=== PATIENT | male | born 1955 ===

== ENCOUNTER 2018-05-15 07:40 | Day surgery (SDC) | payer OTHER ==
[2018-05-15 08:11] VITALS: BMI 29.5
[2018-05-15] MEDS ORDERED: Propofol 10 mg/ml Inj (20 ML) ONE (09:27)
[2018-05-15] MEDS ORDERED: Midazolam 2 MG/2 ML VIAL ONE (09:27)
[2018-05-15] MEDS ORDERED: Lactated Ringer's 1,000 ML IV ONE ×2 (09:35)
[2018-05-15 10:35] VITALS: TEMP 98.5
[2018-05-15 10:42] VITALS: RESP 19
[2018-05-15 11:24] VITALS: BP 122/71; PULSE 70; O2SAT 98
== END 2018-05-15 11:21 | disposition home or self-care (01) ==
LOC: C.ENDO 07:40
PROVIDERS: ATTEND Internal Medicine Gastroenterology
DX: Z12.11 Encounter for screening for malignant neoplasm of colon (principal); R63.4 Abnormal weight loss; D12.5 Benign neoplasm of sigmoid colon; D12.3 Benign neoplasm of transverse colon; D50.8 Other iron deficiency anemias; K29.70 Gastritis, unspecified, without bleeding; K25.9 Gastric ulcer, unspecified as acute or chronic, without hemorrhage or perforation
CPT/HCPCS: 43239; 45380; 88305; J2001; J2250; J2704; J7120

== ENCOUNTER 2018-06-03 10:59 | Inpatient (IN) | payer OTHER ==
[2018-06-03 10:59] VITALS: BMI 29.5
[~2018-06-03 10:59] MED LIST: Gadodiamide 287 MG/ML VIAL (15ML) IV ONE
[2018-06-03 12:04] LABS: BASO # 0.1 K/uL (0.0-0.2); BASO % 0.8 % (0.0-2.0); EOS # 0.1 K/uL (0.0-0.7); EOS % 1.3 % (0.0-4.0); HEMOGLOBIN 11.5 g/dL (12.0-18.0); LYMPH # 1.8 K/uL (1.0-4.3); LYMPH % 24.9 % (20.0-40.0); MEAN CELL VOLUME 78.2 fL (80.0-94.0); MEAN CORPUSCULAR HEMOGLOBIN 25.8 pg (27.0-31.0); MEAN PLATELET VOLUME 8.5 fL (7.2-11.7); MONO # 0.7 K/uL (0.0-0.8); MONO % 9.7 % (0.0-10.0); NEUT # 4.6 K/uL (1.8-7.0); NEUT % 63.3 % (50.0-75.0); RBC 4.45 Mil/uL (4.40-5.90); RED CELL DISTRIBUTION WIDTH 16.1 % (11.5-14.5); WHITE BLOOD COUNT 7.2 K/uL (4.8-10.8)
[2018-06-03 12:16] LABS: ALBUMIN 3.6 g/dL (3.5-5.0); ALT/SGPT 18 U/L (21-72); AST/SGOT 23 U/L (17-59); BLOOD UREA NITROGEN 19 mg/dL (9-20); CALCIUM 10.1 mg/dl (8.6-10.4); GFR NON-AFRICAN AMERICAN > 60
--- NOTE | 2018-06-03 12:17 | C.PDOC ---
History Of Present Illness Patient sent to the ED by PMD Dr. High for altered mental status, apparently had (+) outpatient RPR. As per family, patient had near syncopal episode several weeks ago, and they urged him to start going to the doctor. Patient had en doscopy done 05/15/18 and was started on PPI and Clarithromycin + Amoxicllin for H. pylori. Family states that soon after they began to notice changes in his mental status, however in the past 1 week it was worsened. Patient is lethargic, does not recognize family. They deny facial droop, slurred speech, extremity weakness, gait changes, drooling. Time Seen by Provider: 06/03/18 11:09 Chief Complaint (Nursing): Weakness/Neurological Deficit History Per: Family History/Exam Limitations: clinical condition Onset/Duration Of Symptoms: Days (2 weeks) Current Symptoms Are (Timing): Still Present Past Medical History Reviewed: Historical Data, Nursing Documentation, Vital Signs Vital Signs: Last Vital Signs Temp 98.1 F 06/03/18 11:08 Pulse 79 06/03/18 12:13 Resp 15 06/03/18 12:13 BP 134/69 06/03/18 12:13 Pulse Ox 98 06/03/18 12:13 - Medical History PMH: Anemia (IRON DEF) Surgical History: Appendectomy (when he was a boy) Family History: States: No Known Family Hx - Social History Hx Alcohol Use: No Hx Substance Use: No - Immunization History Hx Tetanus Toxoid Vaccination: No Hx Influenza Vaccination: No Hx Pneumococcal Vaccination: No Review Of Systems Review Of Systems: ROS cannot be obtained secondary to pt's inabilty to answer questions. Physical Exam - Physical Exam Appears: Non-toxic, Confused Skin: Normal Color, Warm, Dry Head: Atraumatic, Normacephalic Eye(s): bilateral: Normal Inspection, PERRL (no nystagmus ), EOMI Oral Mucosa: Moist Cardiovascular: Rhythm Regular Respiratory: Normal Breath Sounds, No Rales, No Rhonchi, No Wheezing Gastrointestinal/Abdominal: Normal Exam, Bowel Sounds, Soft, No Tenderness Neurological/Psych: No Normal Cognition, Other (awake but disoriented to person/place/time, able to follow basic commands, moving all 4 extremities spontaneously) ED Course And Treatment - Laboratory Results Result Diagrams: 06/06/18 07:25 06/06/18 07:20 ECG: Interpreted By Me, Viewed By Me (sinus rhythm 73 bpm, short MS interval, normal axis, no acute ST/T wave changes) O2 Sat by Pulse Oximetry: 98 (RA) Pulse Ox Interpretation: Normal - Other Rad CXR X-Ray: Viewed By Me, Read By Radiologist Interpretation: Accession No. : [id number]. Patient Name / ID : ALIA MARTINEZ / [id number]. Exam Date : 06/03/2018 11:57:37 ( Approved ). Study Comment : Sex / Age : M / 62Y. Creator : Yannick Kinsey. Dictator : Duyen Hernadez MD. Catering Service Manager : Account Receivable Associate : Duyen Hernadez MD. Approver2 : Report Date : 06/03/2018 12:25:08. My Comment : . HISTORY: ams. COMPARISON: None available. TECHNIQUE: Chest, one view. FINDINGS: LUNGS: Dense left upper lobe masslike consolidation. PLEURA: No significant pleural effusion identified. No definite pneumothorax . CARDIOVASCULAR: Borderline cardiomega ly. No significant atherosclerotic calcification present. OSSEOUS STRUCTURES: Degenerative changes. VISUALIZED UPPER ABDOMEN: Unremarkable. OTHER FINDINGS: None. IMPRESSION: Dense left upper lobe masslike consolidation. Correlate clinically for possibility of pneumonia. Recommend follow-up to ensure complete resolution. Alternatives including malignant neoplasm not excluded. - CT Scan/US ct head Other Rad Studies (CT/US): Read By Radiologist, Radiology Report Reviewed CT/US Interpretation: Accession No. : [id number]. Patient Name / ID : ALIA MARTINEZ / [id number]. Exam Date : 06/03/2018 12:00:35 ( Approved ). Study Comment : Sex / Age : M / 62Y. Creator : Monica Cordova. Dictator : Cramen Singh MD. Catering Service Manager : Account Receivable Associate : Carmen Singh MD. Approver2 : Report Date : 06/03/2018 12:05:33. My Comment : . Date of service: 06/03/2018. PROCEDURE: CT HEAD WITHOUT CONTRAST. HISTORY: ams. COMPARISON: None available. TECHNIQUE: Axial computed tomography images were obtained through the head/brain without intravenous contrast. Radiation dose: Total exam DLP = 1110.82 mGy-cm. This CT exam was performed using one or more of the following dose reduction techniques: Automated exposure control, adjustment of the mA and/or kV according to patient size, and/or use of iterative reconstruction technique. FINDINGS: HEMORRHAGE: No intracranial hemorrhage. BRAIN: There is a 1.9 x 1.9 x 2.1 cm well-circumscribed round hyperdense lesion in the left parietal lobe with significant surrounding vasogenic edema which extends into the frontal, parietal and temporal lobes as well as right basal ganglia, internal capsule and thalamus., local and regional mass effect with effacement of the cortical sulci, left lateral ventricle and 6 mm midline shift from left to right. VENTRICLES: No obstructive hydrocephalus. CALVARIUM: There is no calvarial fracture or extracranial soft tissue swelling. PARANASAL SINUSES: Predominantly clear. MASTOID AIR CELLS: Predominantly clear. OTHER FINDINGS: None. IMPRESSION: 1.9 x 1.9 x 2.1 cm hypodense mass in the left parietal lobe with significant surrounding vasogenic edema, local and regional mass effect with effacement of the left lateral ventricle and 6 mm midline shift from left to right. The differential considerations include metastasis, lymphoma and atypical meningioma. MRI of the brain without and with intravenous contrast is recommended for further characterization. Critical findings were discussed with Dr. Mindy Taylor in the ER on 06/03/2018 at. 12:15 p.m. Progress Note: Blood work, EKG, CXR, CT head ordered. 12:45pm- Spoke with Dr. Lambert, recommends MRI. He is aware MRI is currently down, unclear when will be back up. Discussed patient with neurologist Dr. Perez, is in agreement with current treatment (mannitol, steroids) and recommends MRI. Will see patient in ED. 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 MRI is back up, patient will be going to have test done soon. Critical Care Time - Critical Care Note Total Time (in mins): 50 Documented critical care: time excludes all time spent performing seperately billable procedures. rTPA Inclusion/Exclusion - Refusal of Treatment Patient Refused Treatment: No - Inclusion Criteria for Altepase Patient is 18 years or Older: Yes The Clinical Diagnosis of Ischemic Stroke That is Causing a Potentially Disabling Neurological Deficit: No Time of Onset is Well Established to be Less Than 270 Minute Before Treatment Would Begin: No Risk/Benefit Discussed With Patient/Family Member Present: No Medical Decision Making Medical Decision Making: [place] Coma Scale/Score (GCS) from [facility] on 06/03/2018 All calculations should be rechecked by clinician prior to use RESULT SUMMARY: 13 points [id number] INPUTS: Best eye response > 3 = To verbal command (+3) Best verbal response > 4 = Confused (+4) Best motor response > 6 = Obeys commands (+6) Disposition - Disposition Disposition: HOSPITALIZED Disposition Time: 13:49 Condition: SERIOUS - Clinical Impression Clinical Impression: Brain mass, Mass of left lung, Altered mental status Decision To Admit - Pt Status Changed To: Hospital Disposition Of: Inpatient - Admit Certification Admit to Inpatient:: After my assessment, the patient will require hospitalization for at least two midnights. This is because of the severity of symptoms shown, intensity of services needed, and/or the medical risk in this patient being treated as an outpatient. - InPatient: Physician Admission Certification: I certify that this patient requires 2 or more midnights of care for the following reason:: see notes - . Bed Request Type: Telemetry Admitting Physician: Rayna Botello Patient Diagnosis: Brain mass, Altered mental status, Mass of left lung
--- NOTE | 2018-06-03 12:23 | CT ---
Date of service: 06/03/2018 PROCEDURE: CT HEAD WITHOUT CONTRAST. HISTORY: ams COMPARISON: None available. TECHNIQUE: Axial computed tomography images were obtained through the head/brain without intravenous contrast. Radiation dose: Total exam DLP = 1110.82 mGy-cm. This CT exam was performed using one or more of the following dose reduction techniques: Automated exposure control, adjustment of the mA and/or kV according to patient size, and/or use of iterative reconstruction technique. FINDINGS: HEMORRHAGE: No intracranial hemorrhage. BRAIN: There is a 1.9 x 1.9 x 2.1 cm well-circumscribed round hyperdense lesion in the left parietal lobe with significant surrounding vasogenic edema which extends into the frontal, parietal and temporal lobes as well as right basal ganglia, internal capsule and thalamus., local and regional mass effect with effacement of the cortical sulci, left lateral ventricle and 6 mm midline shift from left to right. VENTRICLES: No obstructive hydrocephalus CALVARIUM: There is no calvarial fracture or extracranial soft tissue swelling. PARANASAL SINUSES: Predominantly clear. MASTOID AIR CELLS: Predominantly clear. OTHER FINDINGS: None. IMPRESSION: 1.9 x 1.9 x 2.1 cm hypodense mass in the left parietal lobe with significant surrounding vasogenic edema, local and regional mass effect with effacement of the left lateral ventricle and 6 mm midline shift from left to right. The differential considerations include metastasis, lymphoma and atypical meningioma. MRI of the brain without and with intravenous contrast is recommended for further characterization. Critical findings were discussed with Dr. Mindy Taylor in the ER on 06/03/2018 at 12:15 p.m.
[2018-06-03 12:26] LABS: CK-MB 0.79 ng/mL (0.0-3.38)
[2018-06-03] MEDS ORDERED: Albuterol 0.083% Inhal Sol (2.5 mg/3 mL) UD ONE (12:32)
--- NOTE | 2018-06-03 13:10 | RAD ---
HISTORY: ams COMPARISON: None available. TECHNIQUE: Chest, one view. FINDINGS: LUNGS: Dense left upper lobe masslike consolidation. PLEURA: No significant pleural effusion identified. No definite pneumothorax . CARDIOVASCULAR: Borderline cardiomegaly. No significant atherosclerotic calcification present. OSSEOUS STRUCTURES: Degenerative changes. VISUALIZED UPPER ABDOMEN: Unremarkable. OTHER FINDINGS: None. IMPRESSION: Dense left upper lobe masslike consolidation. Correlate clinically for possibility of pneumonia. Recommend follow-up to ensure complete resolution. Alternatives including malignant neoplasm not excluded.
[2018-06-03 13:24] LABS: VENOUS BLOOD GAS BASE EXCESS 3.7 mmol/L (0.0-2.0); VENOUS BLOOD GAS PCO2 49 mmHg (40-60); VENOUS BLOOD GAS PO2 41 mm/Hg (30-55); VENOUS BLOOD PH 7.39 (7.32-7.43)
[2018-06-03] MEDS ORDERED: levETIRAcetam 500 MG in Sodium Chloride 0.9% 100 ML IVPB STA (13:53)
[2018-06-03 14:34] LABS: INR 1.4; PROTHROMBIN TIME 15.1 SECONDS (9.7-12.2)
[2018-06-03 14:55] LABS: URINE BILIRUBIN NEGATIVE (NEGATIVE); URINE BLOOD NEGATIVE (NEGATIVE); URINE CLARITY Clear (Clear); URINE COLOR Straw (YELLOW); URINE GLUCOSE (UA) NORMAL (Normal); URINE LEUKOCYTE ESTERASE NEG Leu/uL (Negative); URINE PROTEIN NEGATIVE (NEGATIVE); URINE UROBILINOGEN NORMAL mg/dL (0.2-1.0)
--- NOTE | 2018-06-03 15:01 | CP.PCM.HP ---
<Jayde Machado - Last Filed: 06/03/18 16:30> History of Present Illness - History of Present Illness History of Present Illness: CC: Altered mental status HPI (Obtained from Son and at bedside): Patient is a 62 year old male with no known medical history, who presents to the ED with his son and as per PMD, Dr. High due to AMS and positive RPR. As per family member at bedside, they have noticed progressive AMS and confusion for the past 1-2 weeks. Apparently, at the end of April or beginning of May, patient had a fall after he lost his balance as he was attempting to standing up from a sitting position; patient had at least 2-3 attempts to stand up from the chair, which is a significant change from patient's baseline. There was no LOC after the fall or any injury. In addition, patient had an endoscopy and colonoscopy on 05/15/18 and was found to have H. Pylori, which he started triple therapy for (PPI and Clarithromycin + Amoxicllin). As per family, AMS was observed two days after the initiated of the triple therapy with worsening of mental status in the past 1 week. As per son, he reports that he read that Lansoprazole can cause AMS, therefore, last week ; both lansoprazole and Clarithromycin was discontinued. In terms of AMS, patient has been observed to be sluggish at work and at home and unable to answer questions correctly, incomprehensible speech and confusion. Family member denies any aggressive behaviors facial asymmetry, urinary or bowel incontinence, falls, stumbling gait or any complaints from patient about his health. However, they have noted weight loss, decrease appetite and worsening AMS. Unable to access ROS due to patient's current condition. Although, patient's medical history is not known, as per and son, patient does have a history of undiagnosed headache that occurs every other week, which is usually alleviated with Tylenol and without any associated symptoms. Advanced directives: None POA: Son, Mr. Garnett, PMD: Dr. High ( started seeing Dr. 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 Pylori since 05/20/18 or 05/22/18 Allergies: Denies Social Hx: Lives with and son. 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 Tobacco use since the 80s; approximately 1/2PPD, ETOH use socially and denies illicit drugs Present on Admission - Present on Admission Any Indicators Present on Admission: No Review of Systems - Review of Systems Systems not reviewed;Unavailable: Altered Mental Status Review of Systems: Unable to access due to patient's current condition Past Patient History - Past Medical History & Family History Past Medical History?: Yes - Past Social History Smoking Status: Current Some Days Smoker - CARDIAC Hx Cardiac Disorders: No - PULMONARY Hx Respiratory Disorders: No - NEUROLOGICAL Hx Neurological Disorder: No - HEENT Hx HEENT Problems: No - RENAL Hx Chronic Kidney Disease: No - ENDOCRINE/METABOLIC Hx Endocrine Disorders: No - HEMATOLOGICAL/ONCOLOGICAL Hx Anemia: Yes (IRON DEF) - INTEGUMENTARY Hx Dermatological Problems: No - MUSCULOSKELETAL/RHEUMATOLOGICAL Hx Musculoskeletal Disorders: Yes (VIT D DEF) - GASTROINTESTINAL Hx Gastrointestinal Disorders: No Other/Comment: H. pylori - GENITOURINARY/GYNECOLOGICAL Hx Genitourinary Disorders: No Other/Comment: +RPR - PSYCHIATRIC Hx Substance Use: No - SURGICAL HISTORY Hx Appendectomy: Yes (when he was a boy) - ANESTHESIA Hx Anesthesia: Yes Hx Anesthesia Reactions: No Hx Malignant Hyperthermia: No Meds Allergies/Adverse Reactions: Allergies Allergy/AdvReac Type Severity Reaction Status Date / Time No Known Allergies Allergy Verified 05/14/18 14:15 Physical Exam - Constitutional Appears: Non-toxic, No Acute Distress, Confused - Head Exam Head Exam: ATRAUMATIC, NORMAL INSPECTION - Eye Exam Eye Exam: EOMI, Normal appearance, PERRL. absent: Nystagmus, Scleral icterus Pupil Exam: NORMAL ACCOMODATION - ENT Exam ENT Exam: Mucous Membranes Dry - Neck Exam Neck exam: Negative for: Lymphadenopathy - Respiratory Exam Respiratory Exam: Clear to Auscultation Bilateral, NORMAL BREATHING PATTERN. absent: Accessory Muscle Use, Decreased Breath Sounds, Rales, Rhonchi, Wheezes, Respiratory Distress - Cardiovascular Exam Cardiovascular Exam: REGULAR RHYTHM, +S1, +S2. absent: Bradycardia, Tachycardia, Irregular Rhythm, Systolic Murmur - GI/Abdominal Exam GI & Abdominal Exam: Normal Bowel Sounds, Soft. absent: Distended, Firm, Guarding, Mass, Organomegaly, Tenderness - Extremities Exam Extremities exam: Positive for: normal capillary refill, normal inspection, pedal pulses present. Negative for: calf tenderness, pedal edema - Back Exam Back exam: NORMAL INSPECTION. absent: CVA tenderness (L), CVA tenderness (R), rash noted - Neurological Exam Neurological exam: Alert Additional comments: Babinski sign negative NIH: 4 GCS: 14 Weakness to hand squeeze on the right side Unable to completely protrude tongue but able to move his tongue side to side - Psychiatric Exam Psychiatric exam: Flat Affect - Skin Skin Exam: Dry, Normal Color Results - Vital Signs Recent Vital Signs: Last Vital Signs Temp 98.8 F 06/03/18 14:25 Pulse 67 06/03/18 14:25 Resp 20 06/03/18 14:25 BP 133/71 06/03/18 14:25 Pulse Ox 97 06/03/18 14:25 - Labs Result Diagrams: 06/03/18 11:57 06/03/18 11:57 Labs: Laboratory Results - last 24 hr 06/03/18 06/03/18 06/03/18 11:08 11:38 11:57 WBC 7.2 RBC 4.45 Hgb 11.5 L Hct 34.8 L MCV 78.2 L MCH 25.8 L MCHC 33.0 RDW 16.1 H Plt Count 342 MPV 8.5 Neut % (Auto) 63.3 Lymph % (Auto) 24.9 [place] % (Auto) 9.7 Eos % (Auto) 1.3 Baso % (Auto) 0.8 Neut # (Auto) 4.6 Lymph # (Auto) 1.8 [place] # (Auto) 0.7 Eos # (Auto) 0.1 Baso # (Auto) 0.1 PT INR pO2 41 VBG pH 7.39 VBG pCO2 49 VBG HCO3 27.2 VBG Total CO2 31.2 H VBG O2 Sat (Calc) 79.9 H VBG Base Excess 3.7 H VBG Potassium 4.0 Sodium 138.0 Chloride 105.0 Glucose 89 Lactate 0.8 Potassium Carbon Dioxide Anion Gap BUN Creatinine Est GFR ( Amer) Est GFR (Non-Af Amer) POC Glucose (mg/dL) 120 H Random Glucose Calcium Total Bilirubin AST ALT Alkaline Phosphatase Ammonia Total Creatine Kinase CK-MB (Mass) Troponin I Total Protein Albumin Globulin Albumin/Globulin Ratio Venous Blood Potassium 4.0 Urine Color Urine Clarity Urine pH Ur Specific [place] Urine Protein Urine Glucose (UA) Urine Ketones Urine Blood Urine Nitrate Urine Bilirubin Urine Urobilinogen Ur Leukocyte Esterase Urine WBC (Auto) Urine RBC (Auto) 06/03/18 06/03/18 06/03/18 11:57 11:57 14:14 WBC RBC Hgb Hct MCV MCH MCHC RDW Plt Count MPV Neut % (Auto) Lymph % (Auto) [place] % (Auto) Eos % (Auto) Baso % (Auto) Neut # (Auto) Lymph # (Auto) [place] # (Auto) Eos # (Auto) Baso # (Auto) PT 15.1 H INR 1.4 pO2 VBG pH VBG pCO2 VBG HCO3 VBG Total CO2 VBG O2 Sat (Calc) VBG Base Excess VBG Potassium Sodium 138 Chloride 104 Glucose Lactate Potassium 4.6 Carbon Dioxide 29 Anion Gap 10 BUN 19 Creatinine 0.6 L Est GFR ( Amer) > 60 Est GFR (Non-Af Amer) > 60 POC Glucose (mg/dL) Random Glucose 100 Calcium 10.1 Total Bilirubin 0.3 AST 23 ALT 18 L Alkaline Phosphatase 108 Ammonia 34 H Total Creatine Kinase 45 L CK-MB (Mass) 0.79 Troponin I < 0.0120 Total Protein 7.2 Albumin 3.6 Globulin 3.6 Albumin/Globulin Ratio 1.0 Venous Blood Potassium Urine Color Urine Clarity Urine pH Ur Specific [place] Urine Protein Urine Glucose (UA) Urine Ketones Urine Blood Urine Nitrate Urine Bilirubin Urine Urobilinogen Ur Leukocyte Esterase Urine WBC (Auto) Urine RBC (Auto) 06/03/18 14:46 WBC RBC Hgb Hct MCV MCH MCHC RDW Plt Count MPV Neut % (Auto) Lymph % (Auto) [place] % (Auto) Eos % (Auto) Baso % (Auto) Neut # (Auto) Lymph # (Auto) [place] # (Auto) Eos # (Auto) Baso # (Auto) PT INR pO2 VBG pH VBG pCO2 VBG HCO3 VBG Total CO2 VBG O2 Sat (Calc) VBG Base Excess VBG Potassium Sodium Chloride Glucose Lactate Potassium Carbon Dioxide Anion Gap BUN Creatinine Est GFR ( Amer) Est GFR (Non-Af Amer) POC Glucose (mg/dL) Random Glucose Calcium Total Bilirubin AST ALT Alkaline Phosphatase Ammonia Total Creatine Kinase CK-MB (Mass) Troponin I Total Protein Albumin Globulin Albumin/Globulin Ratio Venous Blood Potassium Urine Color Straw Urine Clarity Clear Urine pH 7.0 Ur Specific [place] 1.023 Urine Protein Negative Urine Glucose (UA) Normal Urine Ketones Negative Urine Blood Negative Urine Nitrate Negative Urine Bilirubin Negative Urine Urobilinogen Normal Ur Leukocyte Esterase Neg Urine WBC (Auto) < 1 Urine RBC (Auto) 2 Assessment & Plan (1) Altered mental status Assessment and Plan: Possibly likely secondary to left brain mass Possibly neurosyphilis Consultation: * Neurology, Dr. Perez---> help appreciated Labs/Imaging: Head CT w/o contrast (06/03/18): 1.9 x 1.9 x 2.1 cm hypodense mass in the left parietal lobe with significant surrounding vasogenic edema, local and regional mass effect with effacement of the left lateral ventricle and 6 mm midline shift from left to right. The differential considerations include metastasis, lympho ma and atypical meningioma. MRI of the brain without and with intravenous contrast is recommended for further characterization. F/u Brain MRI with and without contrast: Outpatient RPR positive; F/u T. Pallidium AB (TP-PA) Management: * Solumedrol 125 IV once, Mannitol 500mls @ 50mls/cc and Keppra 500mg IV once given in the ED * Failed ED bedside swallow eval; f/u official swallow evaluation, NPO and aspiration precautions * Seizure precautions * Neuro checks Q4H Status: Acute (2) Mass of left parietal lobe Assessment and Plan: Consultations: * NeurologyDr. Perez---> help appreciated * Neurosurgery, Dr. Lambert---> Help appreciated Labs/Imaging: Head CT w/o contrast (06/03/18): 1.9 x 1.9 x 2.1 cm hypodense mass in the left parietal lobe with significant surrounding vasogenic edema, local and regional mass effect with effacement of the left lateral ventricle and 6 mm midline shift from left to right. The differential considerations include metastasis, lymphoma and atypical meningioma. MRI of the brain without and with intravenous contrast is recommended for further characterization. F/u Brain MRI with and without contrast: F/u chest/abdomen/pelvis CT (R/o primary CA) Status: Acute (3) Mass of upper lobe of left lung Assessment and Plan: Consultations: * He[facility] Machine, Dr. Cárdenas---> help appreciated * Hematology/Oncology, Dr. Menggal---> Help appreciated Imaging: Chest X-ray (06/03/18): Dense left upper lobe masslike consolidation. Correlate clinically for possibility of pneumonia. Recommend follow-up to ensure complete resolution. Alternatives including malignant neoplasm not excluded. F/u Chest CT Status: Acute (4) Dry mucous membranes Assessment and Plan: Maintenance fluid: NS @ 113CC/hr Status: Acute (5) Prophylactic measure Assessment and Plan: GI: Not indicated DVT: SCDs, chemical anticoagulation held until intracranial hemorrhage is ruled with MRI as well All plans and management discussed with Dr. Botello Status: Acute <Rayna Botello V - Last Filed: 06/04/18 08:50> Results - Vital Signs Recent Vital Signs: Last Vital Signs Temp 98.8 F 06/03/18 14:25 Pulse 67 06/03/18 14:25 Resp 20 06/03/18 14:25 BP 133/71 06/03/18 14:25 Pulse Ox 97 06/03/18 14:25 - Labs Result Diagrams: 06/04/18 06:17 06/04/18 06:17 Labs: Laboratory Results - last 24 hr 06/03/18 06/03/18 06/03/18 11:08 11:38 11:57 WBC 7.2 RBC 4.45 Hgb 11.5 L Hct 34.8 L MCV 78.2 L MCH 25.8 L MCHC 33.0 RDW 16.1 H Plt Count 342 MPV 8.5 Neut % (Auto) 63.3 Lymph % (Auto) 24.9 [place] % (Auto) 9.7 Eos % (Auto) 1.3 Baso % (Auto) 0.8 Neut # (Auto) 4.6 Lymph # (Auto) 1.8 [place] # (Auto) 0.7 Eos # (Auto) 0.1 Baso # (Auto) 0.1 PT INR pO2 41 VBG pH 7.39 VBG pCO2 49 VBG HCO3 27.2 VBG Total CO2 31.2 H VBG O2 Sat (Calc) 79.9 H VBG Base Excess 3.7 H VBG Potassium 4.0 Sodium 138.0 Chloride 105.0 Glucose 89 Lactate 0.8 Potassium Carbon Dioxide Anion Gap BUN Creatinine Est GFR ( Amer) Est GFR (Non-Af Amer) POC Glucose (mg/dL) 120 H Random Glucose Calcium Total Bilirubin AST ALT Alkaline Phosphatase Ammonia Total Creatine Kinase CK-MB (Mass) Troponin I Total Protein Albumin Globulin Albumin/Globulin Ratio Venous Blood Potassium 4.0 Urine Color Urine Clarity Urine pH Ur Specific [place] Urine Protein Urine Glucose (UA) Urine Ketones Urine Blood Urine Nitrate Urine Bilirubin Urine Urobilinogen Ur Leukocyte Esterase Urine WBC (Auto) Urine RBC (Auto) 06/03/18 06/03/18 06/03/18 11:57 11:57 14:14 WBC RBC Hgb Hct MCV MCH MCHC RDW Plt Count MPV Neut % (Auto) Lymph % (Auto) [place] % (Auto) Eos % (Auto) Baso % (Auto) Neut # (Auto) Lymph # (Auto) [place] # (Auto) Eos # (Auto) Baso # (Auto) PT 15.1 H INR 1.4 pO2 VBG pH VBG pCO2 VBG HCO3 VBG Total CO2 VBG O2 Sat (Calc) VBG Base Excess VBG Potassium Sodium 138 Chloride 104 Glucose Lactate Potassium 4.6 Carbon Dioxide 29 Anion Gap 10 BUN 19 Creatinine 0.6 L Est GFR ( Amer) > 60 Est GFR (Non-Af Amer) > 60 POC Glucose (mg/dL) Random Glucose 100 Calcium 10.1 Total Bilirubin 0.3 AST 23 ALT 18 L Alkaline Phosphatase 108 Ammonia 34 H Total Creatine Kinase 45 L CK-MB (Mass) 0.79 Troponin I < 0.0120 Total Protein 7.2 Albumin 3.6 Globulin 3.6 Albumin/Globulin Ratio 1.0 Venous Blood Potassium Urine Color Urine Clarity Urine pH Ur Specific [place] Urine Protein Urine Glucose (UA) Urine Ketones Urine Blood Urine Nitrate Urine Bilirubin Urine Urobilinogen Ur Leukocyte Esterase Urine WBC (Auto) Urine RBC (Auto) 06/03/18 14:46 WBC RBC Hgb Hct MCV MCH MCHC RDW Plt Count MPV Neut % (Auto) Lymph % (Auto) [place] % (Auto) Eos % (Auto) Baso % (Auto) Neut # (Auto) Lymph # (Auto) [place] # (Auto) Eos # (Auto) Baso # (Auto) PT INR pO2 VBG pH VBG pCO2 VBG HCO3 VBG Total CO2 VBG O2 Sat (Calc) VBG Base Excess VBG Potassium Sodium Chloride Glucose Lactate Potassium Carbon Dioxide Anion Gap BUN Creatinine Est GFR ( Amer) Est GFR (Non-Af Amer) POC Glucose (mg/dL) Random Glucose Calcium Total Bilirubin AST ALT Alkaline Phosphatase Ammonia Total Creatine Kinase CK-MB (Mass) Troponin I Total Protein Albumin Globulin Albumin/Globulin Ratio Venous Blood Potassium Urine Color Straw Urine Clarity Clear Urine pH 7.0 Ur Specific [place] 1.023 Urine Protein Negative Urine Glucose (UA) Normal Urine Ketones Negative Urine Blood Negative Urine Nitrate Negative Urine Bilirubin Negative Urine Urobilinogen Normal Ur Leukocyte Esterase Neg Urine WBC (Auto) < 1 Urine RBC (Auto) 2 Attending/Attestation - Attestation I have personally seen and examined this patient.: Yes I have fully participated in the care of the patient.: Yes I have reviewed all pertinent clinical information: Yes Notes (Text): This is a late computer entry for June 03 2018. Patient seen, examined case discussed with medical translator. Patient seen in bed 1 emergency room accompanied with his and son at bedside. Discussed with family at bedside patient noted worsening confusion over the past week and then today patient not talking and family felt that something was not right. Patient was brought to his PMD Dr. High. Initial concern for possible neurosyphilis given that RPR was positive. When I spoke with the family further patient has had an unintentional weight loss going from a size 40 p.m. to about size 33 over the past 1 year, having issues with balance had almost falls not using any assistive device. Patient denies any prior medical history however he does have a prominent smoking history. I did discuss the CT head findings with family and patient at bedside noting that there is a mass in the section of the brain which is causing a shift. We also did indicate that in terms of the chest x-ray is also abnormal for concern for lung mass. Patient does report as well as family verifies a prominent smoking history. I did speak with the ED doctor who spoke with neurology recommending for dose of mannitol Solu-Medrol and Keppra. Initially the brain MRI was down however it is running. ED doctor also spoke with neurosurgery recommending from brain MRI as well. Patient did complete a brain MRI with and without contrast. We did also order CT scan chest abdomen pelvis IV contrast given concern for malignancy. We are told by the CT will have to be 24 hours because of contrast given the brain MRI. I did speak with neuro started on Decadron and Keppra for seizure prophylaxis. We did place on nicotine patch given prominent smoking history. HIV is negative hepatitis is negative. Patient failed swallow eval in the emergency room we have ordered for next official swallow eval. Patient at this time is full code. Neurosurgery neurosurgery consult, neurology consult heme on consult and plan consult obtained We will continue to follow the patient. We will see terms of the RPR reflex for active TB APS Strong suspicion for malignancy. Assessment/Plan 1. Brain mass 2 . Lung mass 3. Smoking history 4. Acute confusion
--- NOTE | 2018-06-03 15:17 | CP.PCM.CON ---
History of Present Illness - History of Present Illness History of Present Illness: Neurology consult dictated. Neurology consult called by Dr. Crandall. Mr. Zayas is a 62 yr old male who was brought to the Er for altered mental status. CT head shows mass lesion with vasogenic edema and we are obtaining MRi Brain with ashley. Further prognosis/treatment after MRI Brain with ashley. Dr. quach neurology Past Patient History - Past Medical History & Family History Past Medical History?: Yes - Past Social History Smoking Status: Current Some Days Smoker - CARDIAC Hx Cardiac Disorders: No - PULMONARY Hx Respiratory Disorders: No - NEUROLOGICAL Hx Neurological Disorder: No - HEENT Hx HEENT Problems: No - RENAL Hx Chronic Kidney Disease: No - ENDOCRINE/METABOLIC Hx Endocrine Disorders: No - HEMATOLOGICAL/ONCOLOGICAL Hx Anemia: Yes (IRON DEF) - INTEGUMENTARY Hx Dermatological Problems: No - MUSCULOSKELETAL/RHEUMATOLOGICAL Hx Musculoskeletal Disorders: Yes (VIT D DEF) - GASTROINTESTINAL Hx Gastrointestinal Disorders: No Other/Comment: H. pylori - GENITOURINARY/GYNECOLOGICAL Hx Genitourinary Disorders: No Other/Comment: +RPR - PSYCHIATRIC Hx Substance Use: No - SURGICAL HISTORY Hx Appendectomy: Yes (when he was a boy) - ANESTHESIA Hx Anesthesia: Yes Hx Anesthesia Reactions: No Hx Malignant Hyperthermia: No Meds Allergies/Adverse Reactions: Allergies Allergy/AdvReac Type Severity Reaction Status Date / Time No Known Allergies Allergy Verified 05/14/18 14:15 - Medications Medications: Current Medications Sodium Chloride (Sodium Chloride 0.9%) 1,000 mls @ 113 mls/hr IV .[id number] Results - Vital Signs Recent Vital Signs: Last Vital Signs Temp 98.8 F 06/03/18 14:25 Pulse 67 06/03/18 14:25 Resp 20 06/03/18 14:25 BP 133/71 06/03/18 14:25 Pulse Ox 97 06/03/18 14:25 - Labs Result Diagrams: 06/03/18 11:57 06/03/18 11:57 Labs: Laboratory Results - last 24 hr 06/03/18 06/03/18 06/03/18 11:08 11:38 11:57 WBC 7.2 RBC 4.45 Hgb 11.5 L Hct 34.8 L MCV 78.2 L MCH 25.8 L MCHC 33.0 RDW 16.1 H Plt Count 342 MPV 8.5 Neut % (Auto) 63.3 Lymph % (Auto) 24.9 [place] % (Auto) 9.7 Eos % (Auto) 1.3 Baso % (Auto) 0.8 Neut # (Auto) 4.6 Lymph # (Auto) 1.8 [place] # (Auto) 0.7 Eos # (Auto) 0.1 Baso # (Auto) 0.1 PT INR pO2 41 VBG pH 7.39 VBG pCO2 49 VBG HCO3 27.2 VBG Total CO2 31.2 H VBG O2 Sat (Calc) 79.9 H VBG Base Excess 3.7 H VBG Potassium 4.0 Sodium 138.0 Chloride 105.0 Glucose 89 Lactate 0.8 Potassium Carbon Dioxide Anion Gap BUN Creatinine Est GFR ( Amer) Est GFR (Non-Af Amer) POC Glucose (mg/dL) 120 H Random Glucose Calcium Total Bilirubin AST ALT Alkaline Phosphatase Ammonia Total Creatine Kinase CK-MB (Mass) Troponin I Total Protein Albumin Globulin Albumin/Globulin Ratio Venous Blood Potassium 4.0 Urine Color Urine Clarity Urine pH Ur Specific [place] Urine Protein Urine Glucose (UA) Urine Ketones Urine Blood Urine Nitrate Urine Bilirubin Urine Urobilinogen Ur Leukocyte Esterase Urine WBC (Auto) Urine RBC (Auto) 06/03/18 06/03/18 06/03/18 11:57 11:57 14:14 WBC RBC Hgb Hct MCV MCH MCHC RDW Plt Count MPV Neut % (Auto) Lymph % (Auto) [place] % (Auto) Eos % (Auto) Baso % (Auto) Neut # (Auto) Lymph # (Auto) [place] # (Auto) Eos # (Auto) Baso # (Auto) PT 15.1 H INR 1.4 pO2 VBG pH VBG pCO2 VBG HCO3 VBG Total CO2 VBG O2 Sat (Calc) VBG Base Excess VBG Potassium Sodium 138 Chloride 104 Glucose Lactate Potassium 4.6 Carbon Dioxide 29 Anion Gap 10 BUN 19 Creatinine 0.6 L Est GFR ( Amer) > 60 Est GFR (Non-Af Amer) > 60 POC Glucose (mg/dL) Random Glucose 100 Calcium 10.1 Total Bilirubin 0.3 AST 23 ALT 18 L Alkaline Phosphatase 108 Ammonia 34 H Total Creatine Kinase 45 L CK-MB (Mass) 0.79 Troponin I < 0.0120 Total Protein 7.2 Albumin 3.6 Globulin 3.6 Albumin/Globulin Ratio 1.0 Venous Blood Potassium Urine Color Urine Clarity Urine pH Ur Specific [place] Urine Protein Urine Glucose (UA) Urine Ketones Urine Blood Urine Nitrate Urine Bilirubin Urine Urobilinogen Ur Leukocyte Esterase Urine WBC (Auto) Urine RBC (Auto) 06/03/18 14:46 WBC RBC Hgb Hct MCV MCH MCHC RDW Plt Count MPV Neut % (Auto) Lymph % (Auto) [place] % (Auto) Eos % (Auto) Baso % (Auto) Neut # (Auto) Lymph # (Auto) [place] # (Auto) Eos # (Auto) Baso # (Auto) PT INR pO2 VBG pH VBG pCO2 VBG HCO3 VBG Total CO2 VBG O2 Sat (Calc) VBG Base Excess VBG Potassium Sodium Chloride Glucose Lactate Potassium Carbon Dioxide Anion Gap BUN Creatinine Est GFR ( Amer) Est GFR (Non-Af Amer) POC Glucose (mg/dL) Random Glucose Calcium Total Bilirubin AST ALT Alkaline Phosphatase Ammonia Total Creatine Kinase CK-MB (Mass) Troponin I Total Protein Albumin Globulin Albumin/Globulin Ratio Venous Blood Potassium Urine Color Straw Urine Clarity Clear Urine pH 7.0 Ur Specific [place] 1.023 Urine Protein Negative Urine Glucose (UA) Normal Urine Ketones Negative Urine Blood Negative Urine Nitrate Negative Urine Bilirubin Negative Urine Urobilinogen Normal Ur Leukocyte Esterase Neg Urine WBC (Auto) < 1 Urine RBC (Auto) 2
--- NOTE | 2018-06-03 16:50 | MRI ---
Date of service: 06/03/2018 PROCEDURE: MRI BRAIN WITH AND WITHOUT CONTRAST HISTORY: left sided brain mass COMPARISON: CT head without contrast performed earlier the same day. TECHNIQUE: Multiplanar, multisequence MR images of the brain were obtained with and without intravenous contrast enhancement. 14 mL Omniscan was injected intravenously. FINDINGS: HEMORRHAGE: None DWI: No evidence of an acute or early subacute infarction. BRAIN PARENCHYMA: There is a 2.1 x 2.9 x 2.7 cm T1 isointense and T2 hypointense rim enhancing mass with peripheral cystic components in the left insula with massive surrounding vasogenic edema which extends to the frontal, parietal and temporal lobes, external and internal capsules and right mid brain. There is significant local and regional mass effect with effacement of the ipsilateral cortical sulci, effacement of the left lateral ventricle and 6 mm midline shift from right to left. No evidence for sub fall sign, transtentorial or uncal herniation. The mass demonstrates mild restricted diffusion Additionally, there is a 6 x 5 mm T2 hyperintense rim enhancing lesion in the left paramedian posterior parietal lobe with mild surrounding vasogenic edema. There is a 6 mm round rim enhancing lesion in the right periatrial white matter with moderate surrounding vasogenic edema. There are mild chronic microangiopathic changes. There is no extra-axial fluid collection. ENHANCEMENT: No abnormal leptomeningeal enhancement. VENTRICLES: No hydrocephalus. CRANIUM: There is normal bone marrow signal pattern. ORBITS: Grossly unremarkable. PARANASAL SINUSES/MASTOIDS: Clear VASCULAR SYSTEM: There are normal signal voids in the larger intracranial arteries. OTHER FINDINGS: None . IMPRESSION: 2.1 x 2.9 x 2.7 cm rim enhancing mass with peripheral cystic components in the left insula with significant surrounding vasogenic edema, local regional mass effect, effacement of the left lateral ventricle and 6 mm midline shift from left to right. Two additional subcentimeter rim enhancing lesions in the right posterior parietal lobe with mild surrounding vasogenic edema and right periatrial white matter with moderate surrounding vasogenic edema. Findings may represent metastasis or lymphoma. Important findings were discussed with Dr. Byron Perez on 06/03/2018 at 4:40 p.m.
[2018-06-03] MEDS: Dexamethasone 4 mg/1 ml IVP SCH ×2 (18:49→22:40)
--- NOTE | 2018-06-03 20:11 | CON ---
DATE: 06/03/2018 Neurology consult called by Mindy Taylor DO HISTORY OF PRESENT ILLNESS: The patient is a 62-year-old male who was observed by for approximately four weeks to have altered mental status, confusion, difficulty speaking with no seizures, no shaking, no urinary incontinence. The patient was not able to give me a good history. He had outpatient on 05/15/2018 that showed UTI and then showed H. pylori. In last one week it has worsened to the point where the patient was lethargic and did not interact appropriately with family. They also noted that right-sided facial droop as well. PAST MEDICAL HISTORY: Anemia. PAST SURGICAL HISTORY: Appendectomy. SOCIAL HISTORY: No tobacco, no alcohol, no EtOH. ALLERGIES: NO KNOWN DRUG ALLERGIES. REVIEW OF SYSTEMS: Not possible, the patient does not have a mental status to provide this. PHYSICAL EXAMINATION: VITAL SIGNS: On exam in the emergency room temperature 98.1, pulse 79, respiratory rate 15, blood pressure 134/69, pulse ox 98% GENERAL: On exam, the patient was alert and oriented times person only. NEUROLOGIC: He has right-sided facial droop. EOMI. Cranial nerves II to XII were normal. He can name, he cannot repeat and is sporadic. The patient does not follow commands, rather he stares straight ahead. There is no seizure appreciated on exam. Motor tone is normal. Strength is 5/5. Sensory is not accurate. Gait is not tested, patient refused. Reflexes are +2 in upper and lower limbs bilaterally. Toes are downgoing. There is no clonus. LABORATORY DATA: Are as follows: The CBC is normal. The coags are normal. The blood gas is normal. The chemistry is significant of POC 120, ALT 18, AST 23. ammonia 34, creatine kinase 45, and urine is normal. CAT scan of the head is done and showed what appears to be mass lesion with vasogenic edema in the left frontotemporal region extending into the higher cortical regions. There is no hemorrhage appreciated within this lesion. IMPRESSION: This is a 52-year-old male who may possibly have a metastatic lesion/primary lesion, differential including oligodendroglioma or the left frontotemporal region with mass edema. PLAN: 1. One dose of Mannitol. 2. Decadron 4 g every 12 hours, to be continued for several days. 3. MRI of the brain with contrast. 4. After MRI of the brain with contrast was done and images are interpreted, we would further delineate plan as either brain irradiation, resection or transfer to another hospital. Thank you for this interesting consult. Byron Perez MD [facility]
--- NOTE | 2018-06-03 20:15 | CP.PCM.PN ---
Subjective - Date & Time of Evaluation Date of Evaluation: 06/03/18 Time of Evaluation: 20:08 - Subjective Subjective: 62 y o male who presented with acute mental status change about 2 weeks ago He has no known PMH He is awake alert MRI of brain shows 3 lesions 2 in Left and one in Right hemoshpere There is one large lesion in Dominate Frontal lobe There is CXR showing Left Upper lobe mass This is most certainly a met Needs complete metastatic workup There are multiple cranial lesions so that implys that there should only be [id number] treatment The large lesion is in the dominant frontal lobe and there is high risk of neuro comprimise with excision If it should be necessary to remove this lesion then would need neuro- navigation([employer]) which is not available at any [facility]. I would recomment oncology and RT consult Cont with decadron and anticonvulsants, but at this time would not recommend surgery Objective - Vital Signs/Intake and Output Vital Signs (last 24 hours): Temp Pulse Resp BP Pulse Ox 98.4 F 68 20 155/79 H 96 06/03/18 17:00 06/03/18 17:00 06/03/18 17:00 06/03/18 17:00 06/03/18 17:00 Intake and Output: 06/03/18 06/04/18 18:59 06:59 Output Total 200 Balance -200 - Medications Medications: Current Medications Dexamethasone (Decadron Inj) 4 mg IVP Q6H [facility] Last Admin: 06/03/18 18:49 Dose: 4 mg Sodium Chloride (Sodium Chloride 0.9%) 1,000 mls @ 113 mls/hr IV .Q8H51M [facility] Levetiracetam 500 mg/ Sodium (Chloride) 105 mls @ 420 mls/hr IVPB Q12H [facility] Nicotine (Nicoderm Cq) 1 patch TD DAILY [facility] Last Admin: 06/03/18 18:49 Dose: 1 patch - Labs Labs: 06/03/18 11:57 06/03/18 11:57 PT 15.1 SECONDS (9.7-12.2) H 06/03/18 14:14 INR 1.4 06/03/18 14:14
[2018-06-03 20:50] LABS: HEPATITIS B SURFACE AG Negative (NEGATIVE)
[2018-06-03 20:56] LABS: HEPATITIS A IGM NEGATIVE (NEGATIVE); HEPATITIS B CORE AB NEGATIVE (NEGATIVE)
[2018-06-03 21:08] LABS: HEPATITIS C ANTIBODY NEGATIVE (NEGATIVE)
[2018-06-03] MEDS ORDERED: Glucagon Recombinant 1 mg Inj IM PRN (22:38)
[2018-06-03] MEDS ORDERED: Dextrose 50% SYRINGE Inj (50 ml) IVP PRN (22:38)
[2018-06-04] MEDS: Sodium Chloride 0.9% 1,000 ML IV SCH ×6 (00:10→21:30)
[2018-06-04] MEDS: levETIRAcetam 500 MG in Sodium Chloride 0.9% 100 ML IVPB SCH ×2 (01:10→12:15)
[2018-06-04 01:11] VITALS: RESP 20
[2018-06-04] MEDS: Dexamethasone 4 mg/1 ml IVP SCH ×4 (05:48→23:58)
[2018-06-04 06:24] LABS: BASO % 0.5 % (0.0-2.0); HEMOGLOBIN 12.1 g/dL (12.0-18.0); LYMPH # 1.3 K/uL (1.0-4.3); LYMPH % 15.5 % (20.0-40.0); MEAN CELL VOLUME 77.9 fL (80.0-94.0); MEAN CORPUSCULAR HEMOGLOBIN 25.1 pg (27.0-31.0); MEAN CORPUSCULAR HGB CONC 32.3 g/dL (33.0-37.0); MEAN PLATELET VOLUME 8.2 fL (7.2-11.7); MONO # 0.4 K/uL (0.0-0.8); MONO % 4.6 % (0.0-10.0); NEUT # 6.9 K/uL (1.8-7.0); NEUT % 79.4 % (50.0-75.0); RBC 4.83 Mil/uL (4.40-5.90); WHITE BLOOD COUNT 8.7 K/uL (4.8-10.8)
[2018-06-04 07:03] LABS: ALBUMIN 3.4 g/dL (3.5-5.0); ALT/SGPT 19 U/L (21-72); AST/SGOT 16 U/L (17-59); BLOOD UREA NITROGEN 19 mg/dL (9-20); CALCIUM 9.4 mg/dl (8.6-10.4); GFR NON-AFRICAN AMERICAN > 60
--- NOTE | 2018-06-04 07:03 | CP.PCM.PN ---
<Teodora Salinas - Last Filed: 06/04/18 17:37> Subjective - Date & Time of Evaluation Date of Evaluation: 06/04/18 Time of Evaluation: 07:02 - Subjective Subjective: PGY-1 Teodora Salinas D.O. Medicine progress note for Dr. Botello's service: Patient was seen and examined this morning. Over night, nursing reports some limb shaking that lasted for a few seconds. Patient was placed on Avasys. No LOC, tongue biting, or incontinence. This morning, patient is alert and making eye contact. He is able to answer simple questions appropriately. He is moving all extremities and following commands. He denies any complaints. Objective - Vital Signs/Intake and Output Vital Signs (last 24 hours): Temp Pulse Resp BP Pulse Ox 98.1 F 73 20 119/65 96 06/04/18 04:05 06/04/18 04:05 06/04/18 04:05 06/04/18 04:05 06/04/18 04:05 Intake and Output: 06/04/18 06/04/18 06:59 18:59 Intake Total 980 Output Total 650 Balance 330 - Medications Medications: Current Medications Dexamethasone (Decadron Inj) 4 mg IVP Q6H [facility] Last Admin: 06/04/18 05:48 Dose: 4 mg Dextrose (Dextrose 50% Inj) 0 ml IVP .STAT PRN; Protocol PRN Reason: Hypoglycemia Protocol Dextrose (Glutose 15) 0 gm PO .ONCE PRN; Protocol PRN Reason: Hypoglycemia Protocol Glucagon (Glucagen Diagnostic Kit) 0 mg IM .STAT PRN; Protocol PRN Reason: Hypoglycemia Protocol Sodium Chloride (Sodium Chloride 0.9%) 1,000 mls @ 113 mls/hr IV .Q8H51M [facility] Last Admin: 06/04/18 01:14 Dose: 113 mls/hr Levetiracetam 500 mg/ Sodium (Chloride) 105 mls @ 420 mls/hr IVPB Q12H [facility] Last Admin: 06/04/18 01:10 Dose: 420 mls/hr Dextrose (Dextrose 5% In Water 1000 Ml) 1,000 mls @ 0 mls/hr IV .Q0M PRN; Protocol PRN Reason: Hypoglycemia Protocol Nicotine (Nicoderm Cq) 1 patch TD DAILY [facility] Last Admin: 04/23/19 18:49 Dose: 1 patch - Labs Labs: 06/04/18 06:17 06/03/18 11:57 PT 15.1 SECONDS (9.7-12.2) H 06/03/18 14:14 INR 1.4 06/03/18 14:14 - Constitutional Appears: No Acute Distress - Head Exam Head Exam: ATRAUMATIC, NORMAL INSPECTION - Eye Exam Eye Exam: EOMI, Normal appearance, PERRL - ENT Exam ENT Exam: Mucous Membranes Moist - Neck Exam Neck Exam: Full ROM. absent: Lymphadenopathy, Tenderness - Respiratory Exam Respiratory Exam: Clear to Ausculation Bilateral, NORMAL BREATHING PATTERN. absent: Respiratory Distress - Cardiovascular Exam Cardiovascular Exam: RRR, +S1, +S2 - GI/Abdominal Exam GI & Abdominal Exam: Soft. absent: Distended, Tenderness - Extremities Exam Extremities Exam: Normal Inspection. absent: Pedal Edema - Neurological Exam Neurological Exam: Alert, Awake Neuro motor strength exam: Left Upper Extremity: 5, Right Upper Extremity: 4, Left Lower Extremity: 5, Right Lower Extremity: 5 - Psychiatric Exam Psychiatric exam: Flat Affect - Skin Skin Exam: Dry, Normal Color, Warm Assessment and Plan - Assessment and Plan (Free Text) Assessment: Patient is a 62 yo male with extensive smoking history who presents for AMS. Additionally, patient with significant weight loss. Imaging shows large L lung mass aas well as L parietal lobe mass with midline shift. Suspecting malignancy. Plan: AMS 2/2 Left parietal lobe mass - CT head: 1.9 x 1.9 x 2.1 cm hypodense mass in the left parietal lobe with significant surrounding vasogenic edema, local and regional mass effect with effacement of the left lateral ventricle and 6 mm midline shift from left to right. The differential considerations include metastasis, lymphoma and atypical meningioma. - MRI brain: 2.1 x 2.9 x 2.7 cm rim enhancing mass with peripheral cystic components in the left insula with significant surrounding vasogenic edema, local regional mass effect, effacement of the left lateral ventricle and 6 mm midline shift from left to right. Two additional subcentimeter rim enhancing lesions in the right posterior parietal lobe with mild surrounding vasogenic edema and right periatrial white matter with moderate surrounding vasogenic edema. Findings may represent metastasis or lymphoma. - HIV, hepatitis negative - RPR positive (outpatient) - T. pallidium Ab pending - CRP elev (77), ESR elev (119) - Neurochecks - Seizure precautions - Aspiration precautions - Accuchecks ACHS - Hypoglycemia protocol - NS @ 113 cc/hr - Decadron 4 mg IV Q6H- started 06/04 - Keppra 500 mg IV Q12H - Neurology consulted (Chris)- rec transfer to [facility] - Neurosurgery consulted (Petra)- no surgical intervention at this time, rec radiation - [employer]- rec pureed solids/thin liquids - PT/OT Left lung mass - CXR: Dense left upper lobe masslike consolidation. Correlate clinically for possibility of pneumonia. Recommend follow-up to ensure complete resolution. Alternatives including malignant neoplasm not excluded. - CT C/A/P: Large left upper lobe pulmonary mass with severe encasement and narrowing of left upper lobe pulmonary artery. Direct extension to left hilum and mediastinum. Few small adjacent satellite nodules. No evidence of distant metastasis. Mild hepatosplenomegaly. - LDH wnl - Pulmonology consulted (Avi)- consider biopsy - Hem/onc consulted ([place]) Tobacco use disorder, chronic - Encouraged cessation - Nicoderm daily Ppx: VTE: SCDs GI: Protonix 40 mg IV daily Diet: Pureed/thin liquids Dispo: Recommendation is to transfer patient to [facility] where specific treatment, ie. radiation, can be done. However, family is not ready to make that decision yet. Patient needs to be monitored due to continued AMS with midline shift. Case was discussed with attending, Dr. Botello. <Rayna Botello V - Last Filed: 06/07/18 11:36> Objective - Vital Signs/Intake and Output Vital Signs (last 24 hours): Temp Pulse Resp BP Pulse Ox 98.3 F 59 L 20 132/69 95 06/07/18 07:34 06/07/18 07:34 06/07/18 07:34 06/07/18 07:34 06/07/18 07:34 Intake and Output: 06/07/18 06/07/18 06:59 18:59 Intake Total 240 Output Total 400 Balance -160 - Medications Medications: Current Medications Dexamethasone (Decadron Inj) 4 mg IVP Q6H [facility] Last Admin: 06/07/18 05:58 Dose: 4 mg Dextrose (Dextrose 50% Inj) 0 ml IVP .STAT PRN; Protocol PRN Reason: Hypoglycemia Protocol Dextrose (Glutose 15) 0 gm PO .ONCE PRN; Protocol PRN Reason: Hypoglycemia Protocol Glucagon (Glucagen Diagnostic Kit) 0 mg IM .STAT PRN; Protocol PRN Reason: Hypoglycemia Protocol Levetiracetam 500 mg/ Sodium (Chloride) 105 mls @ 420 mls/hr IVPB Q12H [facility] Last Admin: 06/07/18 00:06 Dose: 420 mls/hr Nicotine (Nicoderm Cq) 1 patch TD DAILY [facility] Last Admin: 06/07/18 09:55 Dose: 1 patch Pantoprazole Sodium (Protonix Inj) 40 mg IVP DAILY [facility] Last Admin: 06/07/18 09:56 Dose: 40 mg - Labs Labs: 06/07/18 06:56 06/07/18 06:56 PT 15.1 SECONDS (9.7-12.2) H 06/03/18 14:14 INR 1.4 06/03/18 14:14 Attending/Attestation - Attestation I have personally seen and examined this patient.: Yes I have fully participated in the care of the patient.: Yes I have reviewed all pertinent clinical information, including history, physical exam and plan: Yes Notes (Text): This is late computer entry for 06/04/18. Patient seen, examined, and case discussed with day-time resident. Patient seen this morning and accompanied by resident. Discussed case with neurology, recommend for possible neuro-oncology/[facility]. Awaiting family decision regarding transfer. Patient underwent CT Chest/Abdomen/Pelvis today. 1. Confusion Brain Mass Assessment/Plan * Neurology (Dr. Perez) on the case-->help appreciated * Neurosurgery consulted (Petra)- no surgical intervention at this time, rec radiation * MRI of brain shows 3 lesions 2 in Left and one in Right hemoshpere * There is one large lesion in Dominate Frontal lobe * There is CXR showing Left Upper lobe mass * This is most certainly a met * Needs complete metastatic workup * There are multiple cranial lesions so that implys that there should only be [id number] treatment * The large lesion is in the dominant frontal lobe and there is high risk of neuro comprimise with excision * If it should be necessary to remove this lesion then would need neuro- navigation([employer]) which is not available at any [facility]. * I would recomment oncology and RT consult * Cont with decadron and anticonvulsants, but at this time would not recommend surgery * Hematology-oncology (Dr. Lovett) on board * Pulmonary (Dr. Cárdenas) on board-->help appreciated Imaging: * CT head (06/03/18): 1.9 x 1.9 x 2.1 cm hypodense mass in the left parietal lobe with significant surrounding vasogenic edema, local and regional mass effect with effacement of the left lateral ventricle and 6 mm midline shift from left to right. The differential considerations include metastasis, lymphoma and atypical meningioma. * MRI brain (06/03/18): 2.1 x 2.9 x 2.7 cm rim enhancing mass with peripheral cystic components in the left insula with significant surrounding vasogenic edema, local regional mass effect, effacement of the left lateral ventricle and 6 mm midline shift from left to right. Two additional subcentimeter rim enhancing lesions in the right posterior parietal lobe with mild surrounding vasogenic edema and right periatrial white matter with moderate surrounding vasogenic edema. Findings may represent metastasis or lymphoma. * CT Chest/Abdomen/Pelvis (06/04/18): large left upper lobe pulmonary mass with severe encasement and narrowing of the left upper lobe pulmonary artery. Direct extension to left hilum and mediastinum. Few small adjacent satellite nodules. No evidence of distant metastatsis. Mild hepatosplenomegaly. * HIV, hepatitis negative * RPR positive (outpatient) * T. pallidium Ab pending * CRP elev (77), ESR elev (119) * Neurochecks Q4H * Seizure precautions * Aspiration precautions * Accuchecks ACH * Hypoglycemia protocol * NS @ 113 cc/hr * Decadron 4 mg IV Q6H- started 06/04 * Keppra 500 mg IV Q12H * Neurology consulted (Perez)- rec transfer to [facility] Left lung mass - CXR: Dense left upper lobe masslike consolidation. Correlate clinically for possibility of pneumonia. Recommend follow-up to ensure complete resolution. Alternatives including malignant neoplasm not excluded. - CT C/A/P: Large left upper lobe pulmonary mass with severe encasement and narrowing of left upper lobe pulmonary artery. Direct extension to left hilum and mediastinum. Few small adjacent satellite nodules. No evidence of distant metastasis. Mild hepatosplenomegaly. - LDH wnl - Pulmonology consulted (Avi)- consider biopsy - Hem/onc consulted ([place]) Tobacco use disorder, chronic - Encouraged cessation - Nicoderm daily Ppx: VTE: SCDs GI: Protonix 40 mg IV daily Diet: Pureed/thin liquids Dispo: Recommendation is to transfer patient to [facility] where specific treatment, ie. radiation, can be done. However, family is not ready to make that decision yet. Patient needs to be monitored due to continued AMS with midline shift. Case was discussed with attending, Dr. Botello.
[2018-06-04] MEDS ORDERED: Iodixanol 320 MG/ML 100 ML BOTTLE IV ONE (11:13)
--- NOTE | 2018-06-04 14:47 | CT ---
Date of service: 06/04/2018 PROCEDURE: CT Chest, Abdomen and Pelvis with intravenous contrast HISTORY: Left sided brain mass on head CT, R/O metastasis COMPARISON: Not available TECHNIQUE: IV dose administered: 100 mL Visipaque 320 Radiation dose: Total exam DLP = 953.04 mGy-cm. This CT exam was performed using one or more of the following dose reduction techniques: Automated exposure control, adjustment of the mA and/or kV according to patient size, and/or use of iterative reconstruction technique. FINDINGS: CT CHEST WITH CONTRAST: LUNGS: Irregularly-shaped left upper lobe mass measures 8.1 x 8.3 cm. There is direct extension to the left hilum and mediastinum. There is spiculated density in the left apex directly contiguous with this large mass. There are several small satellite nodules seen in the lingular segment of the left upper lobe. These measure 8 mm or less. No right-sided pulmonary mass is seen. There is minimal linear scar/atelectasis in the lingular segment of the left upper lobe. MEDIASTINUM: Left hilar lymphadenopathy and mediastinal lymphadenopathy related to direct extension of left pulmonary mass. There is marked encasement and narrowing of left upper lobe pulmonary artery. Normal heart size. Normal diameter of thoracic aorta. No dilatation of main pulmonary artery. There is atherosclerotic calcification of the thoracic aorta. LYMPH NODES: As above. PLEURA: Unremarkable. No pneumothorax. No pleural fluid. BONES: Unremarkable. OTHER FINDINGS: None. CT ABDOMEN AND PELVIS: LIVER: Mild hepatomegaly. The liver measures approximately 20 cm craniocaudal. Smooth contour. No mass. No biliary ductal dilatation. GALLBLADDER AND BILE DUCTS: Unremarkable. PANCREAS: Unremarkable. No gross lesion or ductal dilatation. SPLEEN: Mild splenomegaly. The spleen measures approximately 14 cm in greatest dimension. No mass. ADRENALS: Unremarkable. No mass. KIDNEYS AND URETERS: Unremarkable. No hydronephrosis. No solid mass. VASCULATURE: There is atherosclerotic calcification of the abdominal aorta. Unremarkable. No aortic aneurysm. BOWEL: Unremarkable. No obstruction. No gross mural thickening. APPENDIX: Not identified.. No secondary findings to suggest acute appendicitis. PERITONEUM: Trace fluid in pelvis. LYMPH NODES: Unremarkable. No enlarged lymph nodes. BLADDER: Unremarkable. REPRODUCTIVE: Prostate BONES: No acute fracture. OTHER FINDINGS: None. IMPRESSION: Large left upper lobe pulmonary mass with severe encasement and narrowing of left upper lobe pulmonary artery. Direct extension to left hilum and mediastinum. Few small adjacent satellite nodules. No evidence of distant metastasis. Mild hepatosplenomegaly.
--- NOTE | 2018-06-04 15:48 | CP.PCM.CON ---
History of Present Illness - History of Present Illness History of Present Illness: 62 year old male with an unknown PMH, due to not seeing a PMD for many years, presented for AMS which began 1-2 weeks ago. Family states that patient has recently had trouble answering questions, verbalizing, and difficulties with work. Patient recently had and endoscopy and colonoscopy on 05/15/18 and was found to have H. Pylori. Patient was placed on triple therapy. Family d/c'd triple therapy due to AMS. During his stay, patient had an MRI which showed multiple lesions and a CXR which showed a L upper lobe mass. Per nursing report, patient had some limb shaking lasting a few seconds. Patient did not lose conscientiousness. Currently, patient has no acute complains. He is AAOx2; unable to say the month. He is scheduled for a CAT scan today. PMH: as per , patient gets biweekly headaches with symptomatic relief with tylenol. PSH: appendectomy FH: Father; , and had parkinsons Meds: triple therapy All: NKDA Social: Lives with and son. 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 Admits to smoking 1/2 PPD since the s, ETOH socially, and denies illicit drug use. Physical Exam: General: NAD, nontoxic HEENT: atraumatic, normocephalic, dry mucus membranes, normal neck inspection Cardio: RRR s1 and s2 present Pulm: CTAB GI: soft, + bowel sounds in all four quadrants. Extremities: no pedal edema Chest X-ray (06/03/18): Dense left upper lobe masslike consolidation. Correlate clinically for possibility of pneumonia. Recommend follow-up to ensure complete resolution. Alternatives including malignant neoplasm not excluded. Head CT w/o contrast (06/03/18): 1.9 x 1.9 x 2.1 cm hypodense mass in the left parietal lobe with significant surrounding vasogenic edema, local and regional mass effect with effacement of the left lateral ventricle and 6 mm midline shift from left to right. The differential considerations include metastasis, lymphoma and atypical meningioma. MRI of the brain without and with intravenous contrast is recommended for further characterization. A: 62 year old male with an unknown PMH for AMS. Per imaging, patient was found to have lesions in the brain and a L upper lobe lung mass. P: F/U CAT scan chest, abd, pelvis w/ IV contrast consider lung biopsy further prognosis/ treatment after imaging is reviewed Per Dr. Perez, consider MRI with ashley. continue seizure and aspiration precautions All further management as per primary team Past Patient History - Past Medical History & Family History Past Medical History?: Yes - Past Social History Smoking Status: Current Some Days Smoker - CARDIAC Hx Cardiac Disorders: No - PULMONARY Hx Respiratory Disorders: No - NEUROLOGICAL Hx Neurological Disorder: No - HEENT Hx HEENT Problems: No - RENAL Hx Chronic Kidney Disease: No - ENDOCRINE/METABOLIC Hx Endocrine Disorders: No - HEMATOLOGICAL/ONCOLOGICAL Hx Anemia: Yes (IRON DEF) - INTEGUMENTARY Hx Dermatological Problems: No - MUSCULOSKELETAL/RHEUMATOLOGICAL Hx Musculoskeletal Disorders: Yes (VIT D DEF) Hx Falls: Yes - GASTROINTESTINAL Hx Gastrointestinal Disorders: No Other/Comment: H. pylori - GENITOURINARY/GYNECOLOGICAL Hx Genitourinary Disorders: No Other/Comment: +RPR - PSYCHIATRIC Hx Substance Use: No - SURGICAL HISTORY Hx Appendectomy: Yes (when he was a boy) - ANESTHESIA Hx Anesthesia: Yes Hx Anesthesia Reactions: No Hx Malignant Hyperthermia: No Has any member of the family had a problem w/ anesthesia?: No Meds Allergies/Adverse Reactions: Allergies Allergy/AdvReac Type Severity Reaction Status Date / Time No Known Allergies Allergy Verified 05/14/18 14:15 - Medications Medications: Current Medications Dexamethasone (Decadron Inj) 4 mg IVP Q6H [facility] Last Admin: 06/04/18 11:14 Dose: 4 mg Dextrose (Dextrose 50% Inj) 0 ml IVP .STAT PRN; Protocol PRN Reason: Hypoglycemia Protocol Dextrose (Glutose 15) 0 gm PO .ONCE PRN; Protocol PRN Reason: Hypoglycemia Protocol Glucagon (Glucagen Diagnostic Kit) 0 mg IM .STAT PRN; Protocol PRN Reason: Hypoglycemia Protocol Sodium Chloride (Sodium Chloride 0.9%) 1,000 mls @ 113 mls/hr IV .Q8H51M [facility] Last Admin: 06/04/18 12:19 Dose: Not Given Levetiracetam 500 mg/ Sodium (Chloride) 105 mls @ 420 mls/hr IVPB Q12H [facility] Last Admin: 06/04/18 12:15 Dose: 420 mls/hr Dextrose (Dextrose 5% In Water 1000 Ml) 1,000 mls @ 0 mls/hr IV .Q0M PRN; Protocol PRN Reason: Hypoglycemia Protocol Nicotine (Nicoderm Cq) 1 patch TD DAILY [facility] Last Admin: 06/04/18 10:05 Dose: 1 patch Pantoprazole Sodium (Protonix Inj) 40 mg IVP DAILY [facility] Last Admin: 06/04/18 10:05 Dose: 40 mg Pneumococcal Polyvalent Vaccine (Pneumovax 23 Vaccine) 0.5 ml IM .ONCE ONE Stop: 06/05/18 10:01 Results - Vital Signs Recent Vital Signs: Last Vital Signs Temp 98 F 06/04/18 07:31 Pulse 60 06/04/18 07:31 Resp 20 06/04/18 07:31 BP 120/65 06/04/18 07:31 Pulse Ox 97 06/04/18 07:31 - Labs Result Diagrams: 06/04/18 06:17 06/04/18 06:17 Labs: Laboratory Results - last 24 hr 06/03/18 06/03/18 06/04/18 20:03 20:03 01:11 WBC RBC Hgb Hct MCV MCH MCHC RDW Plt Count MPV Neut % (Auto) Lymph % (Auto) [place] % (Auto) Eos % (Auto) Baso % (Auto) Neut # (Auto) Lymph # (Auto) [place] # (Auto) Eos # (Auto) Baso # (Auto) ESR Sodium Potassium Chloride Carbon Dioxide Anion Gap BUN Creatinine Est GFR ( Amer) Est GFR (Non-Af Amer) POC Glucose (mg/dL) 171 H Random Glucose Calcium Phosphorus Magnesium Total Bilirubin AST ALT Alkaline Phosphatase Lactate Dehydrogenase C-Reactive Protein Total Protein Albumin Globulin Albumin/Globulin Ratio Procalcitonin Hepatitis A IgM Ab Negative Hep Bs Antigen Negative Hep B Core IgM Ab Negative Hepatitis C Antibody Negative HIV 1&2 Antibody Screen Negative 06/04/18 06/04/18 06/04/18 05:47 06:17 06:17 WBC 8.7 RBC 4.83 Hgb 12.1 Hct 37.6 MCV 77.9 L MCH 25.1 L MCHC 32.3 L RDW 16.0 H Plt Count 335 MPV 8.2 Neut % (Auto) 79.4 H Lymph % (Auto) 15.5 L [place] % (Auto) 4.6 Eos % (Auto) 0.0 Baso % (Auto) 0.5 Neut # (Auto) 6.9 Lymph # (Auto) 1.3 [place] # (Auto) 0.4 Eos # (Auto) 0.0 Baso # (Auto) 0.0 ESR 119 H Sodium 138 Potassium 4.3 Chloride 105 Carbon Dioxide 28 Anion Gap 10 BUN 19 Creatinine 0.6 L Est GFR ( Amer) > 60 Est GFR (Non-Af Amer) > 60 POC Glucose (mg/dL) 155 H Random Glucose 140 H D Calcium 9.4 Phosphorus 4.4 Magnesium 1.9 Total Bilirubin 0.4 AST 16 L D ALT 19 L Alkaline Phosphatase 103 Lactate Dehydrogenase 365 C-Reactive Protein 77.10 H Total Protein 6.8 Albumin 3.4 L Globulin 3.4 Albumin/Globulin Ratio 1.0 Procalcitonin Hepatitis A IgM Ab Hep Bs Antigen Hep B Core IgM Ab Hepatitis C Antibody HIV 1&2 Antibody Screen 06/04/18 06/04/18 11:09 11:11 WBC RBC Hgb Hct MCV MCH MCHC RDW Plt Count MPV Neut % (Auto) Lymph % (Auto) [place] % (Auto) Eos % (Auto) Baso % (Auto) Neut # (Auto) Lymph # (Auto) [place] # (Auto) Eos # (Auto) Baso # (Auto) ESR Sodium Potassium Chloride Carbon Dioxide Anion Gap BUN Creatinine Est GFR ( Amer) Est GFR (Non-Af Amer) POC Glucose (mg/dL) 146 H Random Glucose Calcium Phosphorus Magnesium Total Bilirubin AST ALT Alkaline Phosphatase Lactate Dehydrogenase C-Reactive Protein Total Protein Albumin Globulin Albumin/Globulin Ratio Procalcitonin < 0.05 L Hepatitis A IgM Ab Hep Bs Antigen Hep B Core IgM Ab Hepatitis C Antibody HIV 1&2 Antibody Screen
--- NOTE | 2018-06-04 18:42 | CARD ---
APPROVED REPORT Date of service: 06/03/2018 EKG Measurement Heart [id number] <Conclusion> Sinus rhythm with short NV with premature atrial complexes in a pattern of bigeminy Otherwise normal ECG
--- NOTE | 2018-06-04 23:03 | CP.PCM.CON ---
History of Present Illness - History of Present Illness History of Present Illness: Patient is a 62 year old male with no known medical history, who presents to the ED with his son and as per PMD, Dr. High due to AMS and positive RPR. As per family member at bedside, they have noticed progressive AMS and confusion for the past 1-2 weeks. Apparently, at the end of April or beginning of May, patient had a fall after he lost his balance as he was attempting to standing up from a sitting position; patient had at least 2-3 attempts to stand up from the chair, which is a significant change from patient' s baseline. There was no LOC after the fall or any injury. In addition, patient had an endoscopy and colonoscopy on 05/15/18 and was found to have H. Pylori, which he started triple therapy for (PPI and Clarithromycin + Amoxicllin). As per family, AMS was observed two days after the initiated of the triple therapy with worsening of mental status in the past 1 week. As per son, he reports that he read that Lansoprazole can cause AMS, therefore, last week ; both lansoprazole and Clarithromycin was discontinued. In terms of AMS, patient has been observed to be sluggish at work and at home and unable to answer questions correctly, incomprehensible speech and confusion. Family member denies any aggressive behaviors facial asymmetry, urinary or bowel incontinence, falls, stumbling gait or any complaints from patient about his health. However, they have noted weight loss, decrease appetite and worsening AMS. Unable to access ROS due to patient's current condition. Oncology consult called for brain mets with lung lesions. The patient is currently on Decadron, with improved speech, still very disoriented and confused, able to follow basic commands Past Patient History - Past Medical History & Family History Past Medical History?: Yes - Past Social History Smoking Status: Current Some Days Smoker - CARDIAC Hx Cardiac Disorders: No - PULMONARY Hx Respiratory Disorders: No - NEUROLOGICAL Hx Neurological Disorder: No - HEENT Hx HEENT Problems: No - RENAL Hx Chronic Kidney Disease: No - ENDOCRINE/METABOLIC Hx Endocrine Disorders: No - HEMATOLOGICAL/ONCOLOGICAL Hx Anemia: Yes (IRON DEF) - INTEGUMENTARY Hx Dermatological Problems: No - MUSCULOSKELETAL/RHEUMATOLOGICAL Hx Musculoskeletal Disorders: Yes (VIT D DEF) Hx Falls: Yes - GASTROINTESTINAL Hx Gastrointestinal Disorders: No Other/Comment: H. pylori - GENITOURINARY/GYNECOLOGICAL Hx Genitourinary Disorders: No Other/Comment: +RPR - PSYCHIATRIC Hx Substance Use: No - SURGICAL HISTORY Hx Appendectomy: Yes (when he was a boy) - ANESTHESIA Hx Anesthesia: Yes Hx Anesthesia Reactions: No Hx Malignant Hyperthermia: No Has any member of the family had a problem w/ anesthesia?: No Meds Allergies/Adverse Reactions: Allergies Allergy/AdvReac Type Severity Reaction Status Date / Time No Known Allergies Allergy Verified 05/14/18 14:15 - Medications Medications: Current Medications Dexamethasone (Decadron Inj) 4 mg IVP Q6H [facility] Last Admin: 06/04/18 17:58 Dose: 4 mg Dextrose (Dextrose 50% Inj) 0 ml IVP .STAT PRN; Protocol PRN Reason: Hypoglycemia Protocol Dextrose (Glutose 15) 0 gm PO .ONCE PRN; Protocol PRN Reason: Hypoglycemia Protocol Glucagon (Glucagen Diagnostic Kit) 0 mg IM .STAT PRN; Protocol PRN Reason: Hypoglycemia Protocol Sodium Chloride (Sodium Chloride 0.9%) 1,000 mls @ 113 mls/hr IV .Q8H51M [facility] Last Admin: 06/04/18 21:30 Dose: 113 mls/hr Levetiracetam 500 mg/ Sodium (Chloride) 105 mls @ 420 mls/hr IVPB Q12H [facility] Last Admin: 06/04/18 12:15 Dose: 420 mls/hr Dextrose (Dextrose 5% In Water 1000 Ml) 1,000 mls @ 0 mls/hr IV .Q0M PRN; Protocol PRN Reason: Hypoglycemia Protocol Nicotine (Nicoderm Cq) 1 patch TD DAILY [facility] Last Admin: 06/04/18 10:05 Dose: 1 patch Pantoprazole Sodium (Protonix Inj) 40 mg IVP DAILY [facility] Last Admin: 06/04/18 10:05 Dose: 40 mg Pneumococcal Polyvalent Vaccine (Pneumovax 23 Vaccine) 0.5 ml IM .ONCE ONE Stop: 06/05/18 10:01 Results - Vital Signs Recent Vital Signs: Last Vital Signs Temp 98.0 F 06/04/18 15:10 Pulse 76 06/04/18 15:10 Resp 20 06/04/18 15:10 BP 143/77 06/04/18 15:10 Pulse Ox 94 L 06/04/18 15:10 - Labs Result Diagrams: 06/04/18 06:17 06/04/18 06:17 Labs: Laboratory Results - last 24 hr 06/04/18 06/04/18 06/04/18 01:11 05:47 06:17 WBC 8.7 RBC 4.83 Hgb 12.1 Hct 37.6 MCV 77.9 L MCH 25.1 L MCHC 32.3 L RDW 16.0 H Plt Count 335 MPV 8.2 Neut % (Auto) 79.4 H Lymph % (Auto) 15.5 L [place] % (Auto) 4.6 Eos % (Auto) 0.0 Baso % (Auto) 0.5 Neut # (Auto) 6.9 Lymph # (Auto) 1.3 [place] # (Auto) 0.4 Eos # (Auto) 0.0 Baso # (Auto) 0.0 ESR 119 H Sodium Potassium Chloride Carbon Dioxide Anion Gap BUN Creatinine Est GFR ( Amer) Est GFR (Non-Af Amer) POC Glucose (mg/dL) 171 H 155 H Random Glucose Calcium Phosphorus Magnesium Total Bilirubin AST ALT Alkaline Phosphatase Lactate Dehydrogenase C-Reactive Protein Total Protein Albumin Globulin Albumin/Globulin Ratio Procalcitonin 06/04/18 06/04/18 06/04/18 06:17 11:09 11:11 WBC RBC Hgb Hct MCV MCH MCHC RDW Plt Count MPV Neut % (Auto) Lymph % (Auto) [place] % (Auto) Eos % (Auto) Baso % (Auto) Neut # (Auto) Lymph # (Auto) [place] # (Auto) Eos # (Auto) Baso # (Auto) ESR Sodium 138 Potassium 4.3 Chloride 105 Carbon Dioxide 28 Anion Gap 10 BUN 19 Creatinine 0.6 L Est GFR ( Amer) > 60 Est GFR (Non-Af Amer) > 60 POC Glucose (mg/dL) 146 H Random Glucose 140 H D Calcium 9.4 Phosphorus 4.4 Magnesium 1.9 Total Bilirubin 0.4 AST 16 L D ALT 19 L Alkaline Phosphatase 103 Lactate Dehydrogenase 365 C-Reactive Protein 77.10 H Total Protein 6.8 Albumin 3.4 L Globulin 3.4 Albumin/Globulin Ratio 1.0 Procalcitonin < 0.05 L 06/04/18 06/04/18 17:08 21:01 WBC RBC Hgb Hct MCV MCH MCHC RDW Plt Count MPV Neut % (Auto) Lymph % (Auto) [place] % (Auto) Eos % (Auto) Baso % (Auto) Neut # (Auto) Lymph # (Auto) [place] # (Auto) Eos # (Auto) Baso # (Auto) ESR Sodium Potassium Chloride Carbon Dioxide Anion Gap BUN Creatinine Est GFR ( Amer) Est GFR (Non-Af Amer) POC Glucose (mg/dL) 149 H 157 H Random Glucose Calcium Phosphorus Magnesium Total Bilirubin AST ALT Alkaline Phosphatase Lactate Dehydrogenase C-Reactive Protein Total Protein Albumin Globulin Albumin/Globulin Ratio Procalcitonin Assessment & Plan (1) Mass of upper lobe of left lung Assessment and Plan: 62 yo man with new AMS, found to have a left insular mass, extending into the ventricle with extensive edema, a second parietal lesion. His CAT scans show a large 8 cm left upper lobe lung lesion, encasing the pulmonary vessels, with extension into the midline. This presentation in a smoker is consistent with likely pulmonary neoplasm, with brain mets, likely small cell lung cancer. The family is in discussion with PMD regarding a transfer to [facility], ? requested by them. If they decide to stay, the patient will need a lung biopsy to make a diagnosis and WBRT. IR and Rad-Onc consults requested. Will discuss the likely diagnosis, treatment options, and prognosis, which is dismal in metastatic small cell lung cancer Status: Acute
[2018-06-05] MEDS: levETIRAcetam 500 MG in Sodium Chloride 0.9% 100 ML IVPB SCH ×3 (00:01→14:31)
[2018-06-05] MEDS: Dexamethasone 4 mg/1 ml IVP SCH ×5 (04:42→23:45)
--- NOTE | 2018-06-05 06:59 | CP.PCM.PN ---
Subjective - Date & Time of Evaluation Date of Evaluation: 06/05/18 Time of Evaluation: 06:57 - Subjective Subjective: PGY-1 Teodora Salinas D.O. Medicine progress note for Dr. Botello's service: Patient was seen and examined this morning. Patient is sitting up in a chair at bedside. He is alert and oriented. he is able to answer questions appropriately. His voice is quiet and he only gives 1-2 word answers. He is moving all limbs equally. He is able to feed himself. Family is at bedside, including . Discussed with them them various treatment options. Family and patient are open to pursuing all avenues. Patient is scheduled for radiation oncology consult at [facility] today. Additionally, information has been given to Alie. Objective - Vital Signs/Intake and Output Vital Signs (last 24 hours): Temp Pulse Resp BP Pulse Ox 98.1 F 59 L 20 128/76 96 06/05/18 00:00 06/05/18 00:00 06/05/18 00:00 06/05/18 00:00 06/05/18 00:00 Intake and Output: 06/04/18 06/05/18 18:59 06:59 Intake Total 2178 Output Total 400 Balance 1778 - Medications Medications: Current Medications Dexamethasone (Decadron Inj) 4 mg IVP Q6H [facility] Last Admin: 06/05/18 04:42 Dose: 4 mg Dextrose (Dextrose 50% Inj) 0 ml IVP .STAT PRN; Protocol PRN Reason: Hypoglycemia Protocol Dextrose (Glutose 15) 0 gm PO .ONCE PRN; Protocol PRN Reason: Hypoglycemia Protocol Glucagon (Glucagen Diagnostic Kit) 0 mg IM .STAT PRN; Protocol PRN Reason: Hypoglycemia Protocol Sodium Chloride (Sodium Chloride 0.9%) 1,000 mls @ 113 mls/hr IV .Q8H51M [facility] Last Admin: 06/04/18 21:30 Dose: 113 mls/hr Levetiracetam 500 mg/ Sodium (Chloride) 105 mls @ 420 mls/hr IVPB Q12H [facility] Last Admin: 06/05/18 00:01 Dose: 420 mls/hr Dextrose (Dextrose 5% In Water 1000 Ml) 1,000 mls @ 0 mls/hr IV .Q0M PRN; Prot ocol PRN Reason: Hypoglycemia Protocol Nicotine (Nicoderm Cq) 1 patch TD DAILY [facility] Last Admin: 06/04/18 10:05 Dose: 1 patch Pantoprazole Sodium (Protonix Inj) 40 mg IVP DAILY [facility] Last Admin: 06/04/18 10:05 Dose: 40 mg Pneumococcal Polyvalent Vaccine (Pneumovax 23 Vaccine) 0.5 ml IM .ONCE ONE Stop: 06/05/18 10:01 - Labs Labs: 06/04/18 06:17 06/04/18 06:17 PT 15.1 SECONDS (9.7-12.2) H 06/03/18 14:14 INR 1.4 06/03/18 14:14 - Additional Findings Additional findings: - Constitutional Appears: No Acute Distress - Head Exam Head Exam: ATRAUMATIC, NORMAL INSPECTION - Eye Exam Eye Exam: EOMI, Normal appearance, PERRL - ENT Exam ENT Exam: Mucous Membranes Moist - Neck Exam Neck Exam: Full ROM. absent: Lymphadenopathy, Tenderness - Respiratory Exam Respiratory Exam: Clear to Auscultation Bilateral, NORMAL BREATHING PATTERN. absent: Respiratory Distress - Cardiovascular Exam Cardiovascular Exam: RRR, +S1, +S2 - GI/Abdominal Exam GI & Abdominal Exam: Soft. absent: Distended, Tenderness - Extremities Exam Extremities Exam: Normal Inspection. absent: Pedal Edema - Neurological Exam Neurological Exam: Alert, Awake Neuro motor strength exam: Left Upper Extremity: 5, Right Upper Extremity: 5, Left Lower Extremity: 5, Right Lower Extremity: 5 - Psychiatric Exam Psychiatric exam: Flat Affect - Skin Skin Exam: Dry, Normal Color, Warm Assessment and Plan - Assessment and Plan (Free Text) Assessment: Patient is a 62 yo male with extensive smoking history who presents for AMS. Additionally, patient with significant weight loss. Imaging shows large L lung mass as well as L parietal lobe mass with midline shift. Suspecting malignancy. Multiple consultants on board. Recommendation is for transfer to [place] when possible. Plan: AMS 2/2 Left parietal lobe mass- suspect metastasis - CT head: 1.9 x 1.9 x 2.1 cm hypodense mass in the left parietal lobe with significant surrounding vasogenic edema, local and regional mass effect with effacement of the left lateral ventricle and 6 mm midline shift from left to right. The differential considerations include metastasis, lymphoma and atypical meningioma. - Repeat CT head pending - MRI brain: 2.1 x 2.9 x 2.7 cm rim enhancing mass with peripheral cystic components in the left insula with significant surrounding vasogenic edema, local regional mass effect, effacement of the left lateral ventricle and 6 mm midline shift from left to right. Two additional subcentimeter rim enhancing lesions in the right posterior parietal lobe with mild surrounding vasogenic edema and right periatrial white matter with moderate surrounding vasogenic tisha ma. Findings may represent metastasis or lymphoma. - Blood Cx negative >48 hrs - HIV, hepatitis negative - RPR positive (outpatient) - T. pallidium Ab pending - CRP elev (77), ESR elev (119) - Neurochecks - Seizure precautions - Aspiration precautions - Accuchecks ACHS - Hypoglycemia protocol - Discontinue IVF - Decadron 4 mg IV Q6H- started 06/04 - Keppra 500 mg IV Q12H - Neurology consulted (Chris)- rec transfer to [place] - Neurosurgery consulted (Petra)- no surgical intervention at this time, rec radiation - Hem/onc consulted (Bony) - Rad onc consulted (Lyn) - IR consulted (Bhaskar) - PUBLIC HEALTH ADVISOR- rec pureed solids/thin liquids - PT/OT- rec acute rehab Left lung mass- suspect primary malignancy (small cell carcinoma) - CXR: Dense left upper lobe masslike consolidation. Correlate clinically for possibility of pneumonia. Recommend follow-up to ensure complete resolution. Alternatives including malignant neoplasm not excluded. - CT C/A/P: Large left upper lobe pulmonary mass with severe encasement and narrowing of left upper lobe pulmonary artery. Direct extension to left hilum and mediastinum. Few small adjacent satellite nodules. No evidence of distant metastasis. Mild hepatosplenomegaly. - LDH wnl - Pulmonology consulted (Avi)- consider biopsy - Hem/onc consulted (Bradleyathingal)- suspect small cell carcinoma - Rad onc consulted (Lyn)- whole-brain radiation for 10 days (started 06/05) - IR consulted (Bhaskar)- will consider biopsy if more stable from brain masses/edema Tobacco use disorder, chronic - Encouraged cessation - Nicoderm daily Ppx: VTE: SCDs GI: Protonix 40 mg IV daily Diet: Pureed/thin liquids Dispo: Recommendation is to transfer patient to [place] where specific treatment, ie. radiation, can be done. Neuro-oncologist, Dr. Davis, accepted patient for transfer. In the meantime, patient will continue whole-brain radiation at [facility] until bed available. Case was discussed with attending, Dr. Botello.
[2018-06-05 07:41] LABS: BASO % 0.1 % (0.0-2.0); HEMOGLOBIN 11.3 g/dL (12.0-18.0); LYMPH # 1.1 K/uL (1.0-4.3); LYMPH % 9.3 % (20.0-40.0); MEAN CELL VOLUME 78.2 fL (80.0-94.0); MEAN CORPUSCULAR HEMOGLOBIN 25.3 pg (27.0-31.0); MEAN CORPUSCULAR HGB CONC 32.4 g/dL (33.0-37.0); MONO # 0.5 K/uL (0.0-0.8); MONO % 4.2 % (0.0-10.0); NEUT # 10.5 K/uL (1.8-7.0); NEUT % 86.4 % (50.0-75.0); PLATELET COUNT 318 K/uL (130-400); RBC 4.47 Mil/uL (4.40-5.90); RED CELL DISTRIBUTION WIDTH 16.1 % (11.5-14.5); WHITE BLOOD COUNT 12.2 K/uL (4.8-10.8)
[2018-06-05] MEDS: Sodium Chloride 0.9% 1,000 ML IV SCH (07:50)
[2018-06-05 08:05] LABS: ALBUMIN 3.2 g/dL (3.5-5.0); ALT/SGPT 22 U/L (21-72); AST/SGOT 14 U/L (17-59); BLOOD UREA NITROGEN 19 mg/dL (9-20); CALCIUM 9.1 mg/dl (8.6-10.4); GFR NON-AFRICAN AMERICAN > 60
[2018-06-05 08:49] LABS: BANDS 3 % (0-2); LYMPHOCYTE 10 % (20-40); MONOCYTE 4 % (0-10); NEUTROPHIL 83 % (50-75); PLATELET ESTIMATE NORMAL (NORMAL); TOTAL CELLS COUNTED 100
[2018-06-05 08:50] LABS: ANISOCYTOSIS SLIGHT; OVALOCYTES SLIGHT
[2018-06-05] MEDS ORDERED: Pneumococcal 23-Valent Vaccine IM ONE (10:00)
--- NOTE | 2018-06-05 17:59 | CP.PCM.PN ---
Subjective - Date & Time of Evaluation Date of Evaluation: 06/05/18 Time of Evaluation: 10:00 - Subjective Subjective: : Patient seen and examined at bedside. He has no acute complaints. He has difficulty speaking but is AAox3. Family and patient express desire to be transferred to [place] for medical work up. O: Physical Exam: General: NAD, nontoxic HEENT: atraumatic, normocephalic, ,oist mucus membranes, normal neck inspection Cardio: RRR s1 and s2 present Pulm: CTAB GI: soft, + bowel sounds in all four quadrants. Extremities: no pedal edema Imaging: Chest X-ray (06/03/18): Dense left upper lobe masslike consolidation. Correlate clinically for possibility of pneumonia. Recommend follow-up to ensure complete resolution. Alternatives including malignant neoplasm not excluded. Head CT w/o contrast (06/03/18): 1.9 x 1.9 x 2.1 cm hypodense mass in the left parietal lobe with significant surrounding vasogenic edema, local and regional mass effect with effacement of the left lateral ventricle and 6 mm midline shift from left to right. The differential considerations include metastasis, lymphoma and atypical meningioma. MRI of the brain without and with intravenous contrast is recommended for further characterization. Chest, Abd, Pelvis CT with IV contrast (06/04/18): Large L upper lobe mass with severe encasement and narrowing of L upper lobe pulmonary Art. Direct extension to L hilum and mediastinum. No evidence of distal mets. A: 62 year old male with multiple lesions in the brain and a L upper lobe lung mass. P: Awaiting acceptance from [facility] Patient does not want lung biopsy at this time Wishes workup to be done at [place] All further management as per primary team Objective - Vital Signs/Intake and Output Vital Signs (last 24 hours): Temp Pulse Resp BP Pulse Ox 98.3 F 74 20 134/78 98 06/05/18 16:00 06/05/18 16:00 06/05/18 16:00 06/05/18 16:00 06/05/18 16:00 Intake and Output: 06/05/18 06/05/18 06:59 18:59 Intake Total 2178 226 Output Total 400 Balance 1778 226 - Medications Medications: Current Medications Dexamethasone (Decadron Inj) 4 mg IVP Q6H [facility] Last Admin: 06/05/18 17:40 Dose: 4 mg Dextrose (Dextrose 50% Inj) 0 ml IVP .STAT PRN; Protocol PRN Reason: Hypoglycemia Protocol Dextrose (Glutose 15) 0 gm PO .ONCE PRN; Protocol PRN Reason: Hypoglycemia Protocol Glucagon (Glucagen Diagnostic Kit) 0 mg IM .STAT PRN; Protocol PRN Reason: Hypoglycemia Protocol Levetiracetam 500 mg/ Sodium (Chloride) 105 mls @ 420 mls/hr IVPB Q12H [facility] Last Admin: 06/05/18 14:31 Dose: 420 mls/hr Dextrose (Dextrose 5% In Water 1000 Ml) 1,000 mls @ 0 mls/hr IV .Q0M PRN; Protocol PRN Reason: Hypoglycemia Protocol Nicotine (Nicoderm Cq) 1 patch TD DAILY [facility] Last Admin: 06/05/18 09:49 Dose: 1 patch Pantoprazole Sodium (Protonix Inj) 40 mg IVP DAILY [facility] Last Admin: 06/05/18 09:51 Dose: 40 mg - Labs Labs: 06/05/18 07:31 06/05/18 07:31 PT 15.1 SECONDS (9.7-12.2) H 06/03/18 14:14 INR 1.4 06/03/18 14:14
[2018-06-06] MEDS: levETIRAcetam 500 MG in Sodium Chloride 0.9% 100 ML IVPB SCH ×2 (00:44→12:50)
[2018-06-06] MEDS: Dexamethasone 4 mg/1 ml IVP SCH ×4 (05:15→22:45)
[2018-06-06 07:36] LABS: BASO % 0.1 % (0.0-2.0); HEMOGLOBIN 11.5 g/dL (12.0-18.0); LYMPH # 1.2 K/uL (1.0-4.3); LYMPH % 11.2 % (20.0-40.0); MEAN CELL VOLUME 77.9 fL (80.0-94.0); MEAN CORPUSCULAR HEMOGLOBIN 25.7 pg (27.0-31.0); MEAN CORPUSCULAR HGB CONC 32.9 g/dL (33.0-37.0); MEAN PLATELET VOLUME 8.9 fL (7.2-11.7); MONO # 0.6 K/uL (0.0-0.8); NEUT # 8.8 K/uL (1.8-7.0); NEUT % 82.7 % (50.0-75.0); RBC 4.5 Mil/uL (4.40-5.90); RED CELL DISTRIBUTION WIDTH 15.7 % (11.5-14.5); WHITE BLOOD COUNT 10.6 K/uL (4.8-10.8)
[2018-06-06 08:34] LABS: ALBUMIN 3.1 g/dL (3.5-5.0); ALT/SGPT 53 U/L (21-72); AST/SGOT 29 U/L (17-59); BLOOD UREA NITROGEN 17 mg/dL (9-20); CALCIUM 9.2 mg/dl (8.6-10.4); GFR NON-AFRICAN AMERICAN > 60
--- NOTE | 2018-06-06 09:37 | CT ---
Date of service: 06/06/2018 PROCEDURE: CT HEAD WITHOUT CONTRAST. HISTORY: eval midline shift, edema COMPARISON: None available. TECHNIQUE: Axial computed tomography images were obtained through the head/brain without intravenous contrast. Radiation dose: Total exam DLP = 1172.48 mGy-cm. This CT exam was performed using one or more of the following dose reduction techniques: Automated exposure control, adjustment of the mA and/or kV according to patient size, and/or use of iterative reconstruction technique. FINDINGS: HEMORRHAGE: No intracranial hemorrhage. BRAIN: Left frontal mass, hyperdense relative to the cerebral parenchyma with extensive surrounding vasogenic edema. On this noncontrast study the mass measures roughly 2.6 cm in greatest dimension. There is an area of vasogenic edema in the high right parietal white matter corresponding to an enhancing mass on recent MR examination of 06/03/2018. A 3rd mass seen on that MR examination in the posterior parietal lobe abutting the interhemispheric fissure is not evident on this noncontrast examination. As a result of mass effect from the vasogenic edema on the left side, there is midline shift towards the right by approximately 4 mm. There is no evidence of significant downward herniation. Basilar cisterns are preserved. There is marked mass effect upon the left lateral ventricle with mild effacement. VENTRICLES: No hydrocephalus. Midline shift as described. Partial effacement of left lateral ventricle. CALVARIUM: Unremarkable. PARANASAL SINUSES: Unremarkable as visualized. No significant inflammatory changes. MASTOID AIR CELLS: Unremarkable as visualized. No inflammatory changes. OTHER FINDINGS: None. IMPRESSION: Left frontal mass with extensive surrounding vasogenic edema. Small area of vasogenic edema corresponding to a known mass on recent gadolinium-enhanced MR examination. A 3rd mass seen on that examination is not evident on this noncontrast CT. Midline shift towards the right by 4 mm. Effacement of left lateral ventricle. No other significant abnormality.
--- NOTE | 2018-06-06 14:45 | CP.PCM.PN ---
Subjective - Date & Time of Evaluation Date of Evaluation: 06/06/18 Time of Evaluation: 09:42 - Subjective Subjective: PGY-1 Teodora Salinas D.O. Medicine progress note for Dr. Botello's service: Patient was seen and examined this morning. He received his 2nd radiation treatment [place] [facility] [place]. He is sitting up, alert. Multiple family members are at bedside. Discussed with everyone again the plan to transfer to [place] when bed available but continue radiation treatments at [facility] until that point, and everyone was in agreement. Patient's mental state is unchanged from yesterday but improved from admission. He has no acute complaints. Objective - Vital Signs/Intake and Output Vital Signs (last 24 hours): Temp Pulse Resp BP Pulse Ox 98.1 F 63 20 149/75 98 06/06/18 08:19 06/06/18 08:19 06/06/18 08:19 06/06/18 08:19 06/06/18 10:05 Intake and Output: 06/06/18 06/06/18 06:59 18:59 Intake Total 870 Output Total 500 Balance 370 - Medications Medications: Current Medications Dexamethasone (Decadron Inj) 4 mg IVP Q6H [facility] Last Admin: 06/06/18 10:49 Dose: 4 mg Dextrose (Dextrose 50% Inj) 0 ml IVP .STAT PRN; Protocol PRN Reason: Hypoglycemia Protocol Dextrose (Glutose 15) 0 gm PO .ONCE PRN; Protocol PRN Reason: Hypoglycemia Protocol Glucagon (Glucagen Diagnostic Kit) 0 mg IM .STAT PRN; Protocol PRN Reason: Hypoglycemia Protocol Levetiracetam 500 mg/ Sodium (Chloride) 105 mls @ 420 mls/hr IVPB Q12H [facility] Last Admin: 06/06/18 12:50 Dose: 420 mls/hr Dextrose (Dextrose 5% In Water 1000 Ml) 1,000 mls @ 0 mls/hr IV .Q0M PRN; Protocol PRN Reason: Hypoglycemia Protocol Nicotine (Nicoderm Cq) 1 patch TD DAILY [facility] Last Admin: 06/06/18 09:07 Dose: 1 patch Pantoprazole Sodium (Protonix Inj) 40 mg IVP DAILY [facility] Last Admin: 06/06/18 09:07 Dose: 40 mg - Labs Labs: 06/06/18 07:25 06/06/18 07:20 PT 15.1 SECONDS (9.7-12.2) H 06/03/18 14:14 INR 1.4 06/03/18 14:14 - Additional Findings Additional findings: - Constitutional Appears: No Acute Distress - Head Exam Head Exam: ATRAUMATIC, NORMAL INSPECTION - Eye Exam Eye Exam: EOMI, Normal appearance, PERRL - ENT Exam ENT Exam: Mucous Membranes Moist - Neck Exam Neck Exam: Full ROM. absent: Lymphadenopathy, Tenderness - Respiratory Exam Respiratory Exam: Clear to Auscultation Bilateral, NORMAL BREATHING PATTERN. absent: Respiratory Distress - Cardiovascular Exam Cardiovascular Exam: RRR, +S1, +S2 - GI/Abdominal Exam GI & Abdominal Exam: Soft. absent: Distended, Tenderness - Extremities Exam Extremities Exam: Normal Inspection. absent: Pedal Edema - Neurological Exam Neurological Exam: Alert, Awake Neuro motor strength exam: Left Upper Extremity: 5, Right Upper Extremity: 5, Left Lower Extremity: 5, Right Lower Extremity: 5 - Psychiatric Exam Psychiatric exam: Flat Affect - Skin Skin Exam: Dry, Normal Color, Warm Assessment and Plan - Assessment and Plan (Free Text) Assessment: Patient is a 62 yo male with extensive smoking history who presents for AMS. Additionally, patient with significant weight loss. Imaging shows large L lung mass as well as L parietal lobe mass with midline shift. Suspecting malignancy. Multiple consultants on board. Recommendation is for transfer to [place] when possible. Plan: AMS 2/2 Left parietal lobe mass- suspect metastasis - CT head (06/03): 1.9 x 1.9 x 2.1 cm hypodense mass in the left parietal lobe with significant surrounding vasogenic edema, local and regional mass effect with effacement of the left lateral ventricle and 6 mm midline shift from left to right. The differential considerations include metastasis, lymphoma and atypical meningioma. - Repeat CT head (06/06): Left frontal mass with extensive surrounding vasogenic edema. Small area of vasogenic edema corresponding to a known mass on recent gadolinium-enhanced MR examination. A 3rd mass seen on that examination is not evident on this noncontrast CT. Midline shift towards the right by 4 mm. Effacement of left lateral ventricle. No other significant abnormality. - MRI brain (06/03): 2.1 x 2.9 x 2.7 cm rim enhancing mass with peripheral cystic components in the left insula with significant surrounding vasogenic edema, local regional mass effect, effacement of the left lateral ventricle and 6 mm midline shift from left to right. Two additional subcentimeter rim enhancing les ions in the right posterior parietal lobe with mild surrounding vasogenic edema and right periatrial white matter with moderate surrounding vasogenic edema. Findings may represent metastasis or lymphoma. - Blood Cx negative >48 hrs - HIV, hepatitis negative - RPR positive (outpatient) - T. pallidium Ab pending - CRP elev (77), ESR elev (119) - Neurochecks - Seizure precautions - Aspiration precautions - Accuchecks ACHS - Hypoglycemia protocol - Whole brain radiation for 10 weekdays- started 04/07 - Decadron 4 mg IV Q6H- started 06/04 - Keppra 500 mg IV Q12H - Neurology consulted (Chris)- rec transfer to [place] - Neurosurgery consulted (Petra)- no surgical intervention at this time, rec radiation - Hem/onc consulted (Bony) - Rad onc consulted (Lyn)- started whole brain RT 06/05 - IR consulted (Bhaskar) - [employer]- rec pureed solids/thin liquids - PT/OT- rec acute rehab Left lung mass- suspect primary malignancy (small cell carcinoma) - CXR: Dense left upper lobe masslike consolidation. Correlate clinically for possibility of pneumonia. Recommend follow-up to ensure complete resolution. Alternatives including malignant neoplasm not excluded. - CT C/A/P: Large left upper lobe pulmonary mass with severe encasement and narrowing of left upper lobe pulmonary artery. Direct extension to left hilum and mediastinum. Few small adjacent satellite nodules. No evidence of distant metastasis. Mild hepatosplenomegaly. 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 radiation, can be done. Neuro-oncologist, Dr. Davis, accepted patient for transfer. In the meantime, patient will continue whole-brain radiation [place] [facility] until bed available. Case was discussed with attending, Dr. Botello.
[2018-06-07] MEDS: levETIRAcetam 500 MG in Sodium Chloride 0.9% 100 ML IVPB SCH (00:06)
[2018-06-07] MEDS: Dexamethasone 4 mg/1 ml IVP SCH ×2 (05:58→11:10)
[2018-06-07 07:19] LABS: ALB/GLOB RATIO 1.1 (1.0-2.1); ALBUMIN 3.3 g/dL (3.5-5.0); ALT/SGPT 65 U/L (21-72); AST/SGOT 27 U/L (17-59); BLOOD UREA NITROGEN 19 mg/dL (9-20); CALCIUM 8.8 mg/dl (8.6-10.4); GFR NON-AFRICAN AMERICAN > 60
[2018-06-07 07:35] VITALS: BP 132/69; PULSE 59; TEMP 98.3; O2SAT 95
--- NOTE | 2018-06-07 07:54 | CP.PCM.PN ---
Subjective - Date & Time of Evaluation Date of Evaluation: 06/07/18 Time of Evaluation: 07:53 - Subjective Subjective: PGY-1 Teodora Salinas D.O. Medicine progress note for Dr. Botello's service: Patient was seen and examined this morning. Objective - Vital Signs/Intake and Output Vital Signs (last 24 hours): Temp Pulse Resp BP Pulse Ox 98.3 F 59 L 20 132/69 95 06/07/18 07:34 06/07/18 07:34 06/07/18 07:34 06/07/18 07:34 06/07/18 07:34 Intake and Output: 06/07/18 06/07/18 06:59 18:59 Intake Total 240 Output Total 400 Balance -160 - Medications Medications: Current Medications Dexamethasone (Decadron Inj) 4 mg IVP Q6H [facility] Last Admin: 06/07/18 05:58 Dose: 4 mg Dextrose (Dextrose 50% Inj) 0 ml IVP .STAT PRN; Protocol PRN Reason: Hypoglycemia Protocol Dextrose (Glutose 15) 0 gm PO .ONCE PRN; Protocol PRN Reason: Hypoglycemia Protocol Glucagon (Glucagen Diagnostic Kit) 0 mg IM .STAT PRN; Protocol PRN Reason: Hypoglycemia Protocol Levetiracetam 500 mg/ Sodium (Chloride) 105 mls @ 420 mls/hr IVPB Q12H [facility] Last Admin: 06/07/18 00:06 Dose: 420 mls/hr Nicotine (Nicoderm Cq) 1 patch TD DAILY [facility] Last Admin: 06/06/18 09:07 Dose: 1 patch Pantoprazole Sodium (Protonix Inj) 40 mg IVP DAILY [facility] Last Admin: 06/06/18 09:07 Dose: 40 mg - Labs Labs: 06/06/18 07:25 06/07/18 06:56 PT 15.1 SECONDS (9.7-12.2) H 06/03/18 14:14 INR 1.4 06/03/18 14:14 - Additional Findings Additional findings: - Constitutional Appears: No Acute Distress - Head Exam Head Exam: ATRAUMATIC, NORMAL INSPECTION - Eye Exam Eye Exam: EOMI, Normal appearance, PERRL - ENT Exam ENT Exam: Mucous Membranes Moist - Neck Exam Neck Exam: Full ROM. absent: Lymphadenopathy, Tenderness - Respiratory Exam Respiratory Exam: Clear to Auscultation Bilateral, NORMAL BREATHING PATTERN. absent: Respiratory Distress - Cardiovascular Exam Cardiovascular Exam: RRR, +S1, +S2 - GI/Abdominal Exam GI & Abdominal Exam: Soft. absent: Distended, Tenderness - Extremities Exam Extremities Exam: Normal Inspection. absent: Pedal Edema - Neurological Exam Neurological Exam: Alert, Awake Neuro motor strength exam: Left Upper Extremity: 5, Right Upper Extremity: 5, Left Lower Extremity: 5, Right Lower Extremity: 5 - Psychiatric Exam Psychiatric exam: Flat Affect - Skin Skin Exam: Dry, Normal Color, Warm Assessment and Plan - Assessment and Plan (Free Text) Assessment: Patient is a 62 yo male with extensive smoking history who presents for AMS. Additionally, patient with significant weight loss. Imaging shows large L lung mass as well as L parietal lobe mass with midline shift. Suspecting malignancy. Multiple consultants on board. Plan is for transfer to [place] when bed available. Plan: AMS 03/15 Left parietal lobe mass- suspect metastasis - CT head (06/03): 1.9 x 1.9 x 2.1 cm hypodense mass in the left parietal lobe with significant surrounding vasogenic edema, local and regional mass effect wit h effacement of the left lateral ventricle and 6 mm midline shift from left to right. The differential considerations include metastasis, lymphoma and atypical meningioma. - Repeat CT head (06/06): Left frontal mass with extensive surrounding vasogenic edema. Small area of vasogenic edema corresponding to a known mass on recent gadolinium-enhanced MR examination. A 3rd mass seen on that examination is not evident on this noncontrast CT. Midline shift towards the right by 4 mm. Effacement of left lateral ventricle. No other significant abnormality. - MRI brain (06/03): 2.1 x 2.9 x 2.7 cm rim enhancing mass with peripheral cystic components in the left insula with significant surrounding vasogenic edema, local regional mass effect, effacement of the left lateral ventricle and 6 mm midline shift from left to right. Two additional subcentimeter rim enhancing lesions in the right posterior parietal lobe with mild surrounding vasogenic edema and right periatrial white matter with moderate surrounding vasogenic edema. Findings may represent metastasis or lymphoma. - Blood Cx negative >48 hrs - HIV, hepatitis negative - RPR positive (outpatient) - T. 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 Correlate clinically for possibility of pneumonia. Recommend follow-up to ensure complete resolution. Alternatives including malignant neoplasm not excluded. - CT C/A/P: Large left upper lobe pulmonary mass with severe encasement and narrowing of left upper lobe pulmonary artery. Direct extension to left hilum and mediastinum. Few small adjacent satellite nodules. No evidence of distant metastasis. Mild hepatosplenomegaly. 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 radiation, can be done. Neuro-oncologist, Dr. Davis, accepted patient for transfer. In the meantime, patient will continue whole-brain radiation at [facility] until bed available. Case was discussed with attending, Dr. Botello.
[2018-06-07 08:09] LABS: BASO % 0.1 % (0.0-2.0); LYMPH # 2.1 K/uL (1.0-4.3); LYMPH % 16.7 % (20.0-40.0); MEAN CELL VOLUME 79.2 fL (80.0-94.0); MEAN CORPUSCULAR HEMOGLOBIN 25.5 pg (27.0-31.0); MEAN CORPUSCULAR HGB CONC 32.1 g/dL (33.0-37.0); MEAN PLATELET VOLUME 9.4 fL (7.2-11.7); MONO # 0.9 K/uL (0.0-0.8); MONO % 7.5 % (0.0-10.0); NEUT # 9.6 K/uL (1.8-7.0); NEUT % 75.7 % (50.0-75.0); NRBC % 0.1 % (0.0-2.0); RBC 4.7 Mil/uL (4.40-5.90); RED CELL DISTRIBUTION WIDTH 16.5 % (11.5-14.5); WHITE BLOOD COUNT 12.7 K/uL (4.8-10.8)
--- NOTE | 2018-06-07 09:09 | CP.PCM.DIS ---
Provider - Provider Date of Admission: 06/03/18 13:49 Attending physician: Rayna Botello DO Primary care physician: Anila Consults: 06/03/18 12:45 Physician Consult Stat Comment: brain tumor Consulting Provider: Alfa Lambert Consulting Physician: Alfa Lambert Reason for Consult: neurosurgery Additional Comments: spoken with 06/03/18 13:47 Physician Consult Stat Comment: brain tumor, AMS Consulting Provider: Yadira Perezmi Consulting Physician: Byron Perez Reason for Consult: neurology Additional Comments: spoken with 06/03/18 13:52 Physician Consult Routine Comment: brain mass, lung mass Consulting Provider: Judith Lovett Consulting Physician: Judith Lovett Reason for Consult: hem/onc 06/03/18 16:25 Physician Consult Routine Comment: Consulting Provider: Ronni Cárdenas Consulting Physician: Ronni Cárdenas Reason for Consult: Left upper lobe mass on chest X-ray Additional Comments: Left parietal lobe mass on Head CT, questionable metastasis 06/04/18 21:38 Physician Consult Routine Comment: Consulting Provider: Radu Muro Consulting Physician: Radu Muro Reason for Consult: lung biopsy 06/04/18 21:39 Physician Consult Routine Comment: Consulting Provider: Nataliya Nicholson Consulting Physician: Nataliya Nicholson Reason for Consult: Brain mets Additional Comments: biopsy pending Time Spent in preparation of Discharge (in minutes): 45 Diagnosis - Discharge Diagnosis (1) Altered mental status Status: Acute Priority: High (2) Brain mass Status: Acute Priority: High (3) Mass of left lung Status: Acute Priority: High (4) Tobacco use disorder Status: Chronic Priority: Medium (5) Syphilis Status: Chronic Priority: Medium Hospital Course - Lab Results Lab Results: Micro Results 06/03/18 15:03 Blood Blood Culture - Preliminary NO GROWTH AFTER 3 DAYS 06/03/18 15:03 Blood Blood Culture - Preliminary NO GROWTH AFTER 3 DAYS 06/03/18 14:46 Urine Random Urine Culture - Final Gram Negative Mariano Most Recent Lab Values WBC 12.7 K/uL (4.8-10.8) H 06/07/18 06:56 RBC 4.70 Mil/uL (4.40-5.90) 06/07/18 06:56 Hgb 12.0 g/dL (12.0-18.0) 06/07/18 06:56 Hct 37.3 % (35.0-51.0) 06/07/18 06:56 MCV 79.2 fL (80.0-94.0) L 06/07/18 06:56 MCH 25.5 pg (27.0-31.0) L 06/07/18 06:56 MCHC 32.1 g/dL (33.0-37.0) L 06/07/18 06:56 RDW 16.5 % (11.5-14.5) H 06/07/18 06:56 Plt Count 237 K/uL (130-400) 06/07/18 06:56 MPV 9.4 fL (7.2-11.7) 06/07/18 06:56 Neut % (Auto) 75.7 % (50.0-75.0) H 06/07/18 06:56 Lymph % (Auto) 16.7 % (20.0-40.0) L 06/07/18 06:56 [place] % (Auto) 7.5 % (0.0-10.0) 06/07/18 06:56 Eos % (Auto) 0.0 % (0.0-4.0) 06/07/18 06:56 Baso % (Auto) 0.1 % (0.0-2.0) 06/07/18 06:56 Neut # (Auto) 9.6 K/uL (1.8-7.0) H 06/07/18 06:56 Lymph # (Auto) 2.1 K/uL (1.0-4.3) 06/07/18 06:56 [place] # (Auto) 0.9 K/uL (0.0-0.8) H 06/07/18 06:56 Eos # (Auto) 0.0 K/uL (0.0-0.7) 06/07/18 06:56 Baso # (Auto) 0.0 K/uL (0.0-0.2) 06/07/18 06:56 Neutrophils % (Manual) 83 % (50-75) H 06/05/18 07:31 Band Neutrophils % 3 % (0-2) H 06/05/18 07:31 Lymphocytes % (Manual) 10 % (20-40) L 06/05/18 07:31 Monocytes % (Manual) 4 % (0-10) 06/05/18 07:31 Platelet Estimate Normal (NORMAL) 06/05/18 07:31 Anisocytosis (manual) Slight 06/05/18 07:31 Ovalocytes Slight 06/05/18 07:31 ESR 119 mm/hr (0-15) H 06/04/18 06:17 PT 15.1 SECONDS (9.7-12.2) H 06/03/18 14:14 INR 1.4 06/03/18 14:14 pO2 41 mm/Hg (30-55) 06/03/18 11:38 VBG pH 7.39 (7.32-7.43) 06/03/18 11:38 VBG pCO2 49 mmHg (40-60) 06/03/18 11:38 VBG HCO3 27.2 mmol/L 06/03/18 11:38 VBG Total CO2 31.2 mmol/L (22-28) H 06/03/18 11:38 VBG O2 Sat (Calc) 79.9 % (40-65) H 06/03/18 11:38 VBG Base Excess 3.7 mmol/L (0.0-2.0) H 06/03/18 11:38 VBG Potassium 4.0 mmol/L (3.6-5.2) 06/03/18 11:38 Sodium 138.0 mmol/l (132-148) 06/03/18 11:38 Chloride 105.0 mmol/L (98-107) 06/03/18 11:38 Glucose 89 mg/dl (75-110) 06/03/18 11:38 Lactate 0.8 mmol/L (0.7-2.1) 06/03/18 11:38 Sodium 135 mmol/L (132-148) 06/07/18 06:56 Potassium 4.7 mmol/L (3.6-5.2) 06/07/18 06:56 Chloride 100 mmol/L (98-107) 06/07/18 06:56 Carbon Dioxide 31 mmol/L (22-30) H 06/07/18 06:56 Anion Gap 8 (10-20) L 06/07/18 06:56 BUN 19 mg/dL (9-20) 06/07/18 06:56 Creatinine 0.7 mg/dL (0.8-1.5) L 06/07/18 06:56 Est GFR ( Amer) > 60 06/07/18 06:56 Est GFR (Non-Af Amer) > 60 06/07/18 06:56 POC Glucose (mg/dL) 131 mg/dL (65-110) H 06/07/18 07:20 Random Glucose 124 mg/dL (75-110) H 06/07/18 06:56 Calcium 8.8 mg/dl (8.6-10.4) 06/07/18 06:56 Phosphorus 3.1 mg/dL (2.5-4.5) 06/07/18 06:56 Magnesium 2.0 mg/dL (1.6-2.3) 06/07/18 06:56 Total Bilirubin 0.2 mg/dL (0.2-1.3) 06/07/18 06:56 AST 27 U/L (17-59) 06/07/18 06:56 ALT 65 U/L (21-72) 06/07/18 06:56 Alkaline Phosphatase 94 U/L (38-126) 06/07/18 06:56 Ammonia 34 umol/L (9-33) H 06/03/18 11:57 Lactate Dehydrogenase 365 U/L (313-618) 06/04/18 06:17 Total Creatine Kinase 45 U/L (55-170) L 06/03/18 11:57 CK-MB (Mass) 0.79 ng/mL (0.0-3.38) 06/03/18 11:57 Troponin I < 0.0120 ng/mL (0.00-0.120) 06/03/18 11:57 C-Reactive Protein 77.10 mg/L (0.0-9.9) H 06/04/18 06:17 Total Protein 6.3 g/dL (6.3-8.3) 06/07/18 06:56 Albumin 3.3 g/dL (3.5-5.0) L 06/07/18 06:56 Globulin 3.0 gm/dL (2.2-3.9) 06/07/18 06:56 Albumin/Globulin Ratio 1.1 (1.0-2.1) 06/07/18 06:56 Procalcitonin < 0.05 NG/ML (0.19-0.49) L 06/04/18 11:09 Venous Blood Potassium 4.0 mmol/L (3.6-5.2) 06/03/18 11:38 Urine Color Straw (YELLOW) 06/03/18 14:46 Urine Clarity Clear (Clear) 06/03/18 14:46 Urine pH 7.0 (5.0-8.0) 06/03/18 14:46 Ur Specific [place] 1.023 (1.003-1.030) 06/03/18 14:46 Urine Protein Negative mg/dL (NEGATIVE) 06/03/18 14:46 Urine Glucose (UA) Normal mg/dL (Normal) 06/03/18 14:46 Urine Ketones Negative mg/dL (NEGATIVE) 06/03/18 14:46 Urine Blood Negative (NEGATIVE) 06/03/18 14:46 Urine Nitrate Negative (NEGATIVE) 06/03/18 14:46 Urine Bilirubin Negative (NEGATIVE) 06/03/18 14:46 Urine Urobilinogen Normal mg/dL (0.2-1.0) 06/03/18 14:46 Ur Leukocyte Esterase Neg Melissa/uL (Negative) 06/03/18 14:46 Urine WBC (Auto) < 1 /hpf (0-5) 06/03/18 14:46 Urine RBC (Auto) 2 /hpf (0-3) 06/03/18 14:46 T.pallidum Ab (TP-PA) Reactive (Nonreactive) H 06/03/18 11:57 Hepatitis A IgM Ab Negative (NEGATIVE) 06/03/18 20:03 Hep Bs Antigen Negative (NEGATIVE) 06/03/18 20:03 Hep B Core IgM Ab Negative (NEGATIVE) 06/03/18 20:03 Hepatitis C Antibody Negative (NEGATIVE) 06/03/18 20:03 HIV 1&2 Antibody Screen Negative (NEGATIVE) 06/03/18 20:03 - Hospital Course Hospital Course: Patient is a 62 year old male with no known medical history who presented to the ED with his son and as per PMD, Dr. High due to AMS and positive RPR. As per family member at bedside, they have noticed progressive AMS and confusion for the past 1-2 weeks. Apparently, at the end of April or beginning of May, patient had a fall after he lost his balance as he was attempting to standing up from a sitting position; patient had at least 2-3 attempts to stand up from the chair, which is a significant change from patient' s baseline. There was no LOC after the fall or any injury. In addition, patient had an endoscopy and colonoscopy on 05/15/18 and was found to have H. Pylori, which he started triple therapy for (PPI + Clarithromycin + Amoxicllin). As per family, AMS was observed two days after the initiated of the triple therapy with worsening of mental status in the past 1 week. As per son, he reports that he read that Lansoprazole can cause AMS; therefore, last week , both lansoprazole and Clarithromycin were discontinued. In terms of AMS, patient has been observed to be sluggish at work and at home and unable to answer questions correctly with incomprehensible speech and confusion. Family members deny any aggressive behaviors, facial asymmetry, urinary or bowel incontinence, falls, stumbling gait, or any complaints from patient about his health. However, they have noted significant weight loss, decreased appetite, and worsening AMS. Unable to access ROS due to patient's current condition. Patient was admitted for altered mental status. Imaging revealed masses in both the brain and lung. Specifically, CT head showed 1.9 x 1.9 x 2.1 cm hypodense mass in the left parietal lobe with significant surrounding vasogenic edema, local and regional mass effect with effacement of the left lateral ventricle and 6 mm midline shift from left to right. MRI brain showed 2.1 x 2.9 x 2.7 cm rim enhancing mass with peripheral cystic components in the left insula with significant surrounding vasogenic edema, local regional mass effect, effacement of the left lateral ventricle and 6 mm midline shift from left to right. Two additional subcentimeter rim enhancing lesions in the right posterior parietal lobe with mild surrounding vasogenic edema and right periatrial white matter with moderate surrounding vasogenic edema. Neurology and neurosurgery were consulted. IV Decadron was started. Both consultants recommended transfer to a medical center with a highly level of care and expertise. Patient was also started on Keppra. Patient noted to have episodes of becoming tremulous, but no true seizure activity observed. Patient had CT of chest, abdomen, and pelvis that revealed Large left upper lobe pulmonary mass with severe encasement and narrowing of left upper lobe pulmonary artery. Direct extension to left hilum and mediastinum. Few small adjacent satellite nodules. No evidence of distant metastasis. Mild hepatosplenomegaly. Pulmonology was consulted and recommended lung biopsy. Masses suspected to be metastatic cancer. 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 IR consulted for lung biopsy; however, post-poned due to midline shift and vasogenic edema. Radiation oncology consulted, and pamela began whole-brain radiation on 06/05. He received a total of 2 treatments before transfer. A 10-day course is recommended. Patient with positive RPR as an outpatient. T. pallidium Ab reactive, and patient was given a dose of IM penicillin G prior to transfer. Patient has an extensive smoking history and continues to smoke 1/2 pack per day. He was given a nicotine patch, and he and his family were counseled on smoking cessation. Upon discharge, patient mental status had improved since admission, but he is still not at baseline. He speaks softly and slowly. He is alert and oriented. He is feeding himself. He still has some residual LUE weakness. Blood culture had no growth for >72 hours. Vitals and labs were stable. Discharge Exam - Head Exam Head Exam: ATRAUMATIC, NORMAL INSPECTION - Eye Exam Eye Exam: EOMI, Normal appearance, PERRL - ENT Exam ENT Exam: Mucous Membranes Moist - Neck Exam Neck exam: Normal Inspection - Respiratory Exam Respiratory Exam: Clear to PA & Lateral, NORMAL BREATHING PATTERN, UNREMARKABLE - Cardiovascular Exam Cardiovascular Exam: RRR, +S1, +S2 - GI/Abdominal Exam GI & Abdominal Exam: Normal Bowel Sounds, Soft, Unremarkable - Extremities Exam Extremities exam: normal inspection, pedal pulses present - Back Exam Back exam: NORMAL INSPECTION - Neurological Exam Neurological exam: Alert, Oriented x3 - Psychiatric Exam Psychiatric exam: Flat Affect - Skin Skin Exam: Normal Color, Warm Discharge Plan - Follow Up Plan Condition: GUARDED Disposition: Trans to Other Acute Care Hosp Patient education suggested?: Yes Instructions: Altered Mental Status (DC), Altered Mental Status (GEN) Additional Instructions: Patient to be transferred to [facility] under the care of neuro-oncologist, Dr. Davis. Referrals: Ronni Cárdenas MD [Staff Provider] - Alfa Lambert MD [Staff Provider] - Judith Lovett MD [Staff Provider] - Byron Perez MD [Staff Provider] -
[2018-06-07] MEDS ORDERED: Penicillin G Benzathine 2.4 Mill Unit/4 ml Syr IM ONE (10:51)
== END 2018-06-07 12:56 | disposition short-term general hospital (02) | DRG 180 ==
LOC: C.ER 10:59 → C.3T 13:49
PROVIDERS: ADMIT Hospitalist; ATTEND Hospitalist
PROC: D0Y07ZZ Contact Radiation of Brain (ICD-10-PCS; principal; 2018-06-05)
DX: C34.12 Malignant neoplasm of upper lobe, left bronchus or lung (principal); C79.31 Secondary malignant neoplasm of brain; G93.6 Cerebral edema; A53.0 Latent syphilis, unspecified as early or late; R29.810 Facial weakness; D50.9 Iron deficiency anemia, unspecified; E55.9 Vitamin D deficiency, unspecified; R41.82 Altered mental status, unspecified; F17.210 Nicotine dependence, cigarettes, uncomplicated; Z87.440 Personal history of urinary (tract) infections; Z90.49 Acquired absence of other specified parts of digestive tract; Z82.0 Family history of epilepsy and other diseases of the nervous system